=== PATIENT | female | born 1945 | race Caucasian/White ===

== ENCOUNTER 2016-06-20 14:26 | Emergency (ER) | payer OTHER ==
[~2016-06-20] VITALS: Ht 162.6 cm; Wt 68.0 kg
[~2016-06-20 14:26] MED LIST: ACET325T96 PO; CHOL100010 PO; LEVO50TA6 PO; MULT-506 PO; NRN800 PO; SIMV20TA2 PO; [UNRECOGNIZED DRUG - CODE] IV
[2016-06-20 14:34] VITALS: TEMP 36.8; Ht 162.6 cm; Wt 68.0 kg
[2016-06-20] MEDS ORDERED: ONDANSETRON 8 MG/54 ML D5W IV STA (14:54)
[2016-06-20] MEDS ORDERED: SODIUM CHLORIDE 0.9% 1000ML 1,000 ML IV STA (14:54)
[2016-06-20] MEDS ORDERED: OPTIRAY 320 IV PRN (15:00)
--- NOTE | 2016-06-20 15:02 | EMERGENCY ROOM VISIT NOTE ---
History Report prepared by Levi: Dayday Ty Under the Supervision of: Dr. Anirudh Sánchez D.O. First contact with patient: 14:38 Chief Complaint: VOMITING Stated Complaint: VOMITING,DIARRHEA Nursing Triage Summary: pt had 2 chemo tx family believes she is dehydrated. has not been eating and drinking for last 1.5 days. has had wet depends. pt has had diarrhea x [address] vomiting [address] to ed. History of Present Illness The patient is a 71 year old female who presents to the Emergency Room with complaints of persistent diarrhea beginning four days prior to arrival. She currently rates her discomfort as a 7/10 in severity. As per daughter, the patient received chemotherapy for her brain cancer six days ago. The daughter associates the patient experiencing nausea, vomiting, persistent headaches, weakness, decreased talking, and a yeast infection under her breast with today' s symptoms. She states the patient began vomiting en route to the ED today, and the patient complains of a headache most mornings. The daughter notes the patient had brain surgery in September 2014, in which, 2% of the cancer remained. She states the cancer became active again a month and a half ago around . The daughter notes the patient has been receiving a new treatment of chemotherapy. She states the patient has received two treatments since April. The daughter notes the patient has become incontinent with her bowels over the past month, and she has not been eating well for the past day and a half. She states the patient has a hard time sitting up in her bed over the past month. The daughter notes the patient was speaking yesterday morning, but has since been communicating with moans. She states the patient lives at home with her without nursing support. The daughter notes the patient was prescribed a depression medication recently, but she has not been able to administer much of the patient's medications over the past several days. She states the patient is supposed to take medication for her seizures, cholesterol, and thyroid, as well. The daughter denies the patient being given a prognosis at this time. Pt denies LOC, fevers, chills, diaphoresis, visual changes, neck pain, chest pain, breathing difficulties, abdominal pain, back pain, melena, hematochezia, urinary symptoms, numbness, lymphadenopathy, rash, or other complaints. It is noted the history is limited secondary to the patient's altered mental status. Source of History: family History Limited By: AMS Onset: four days PIG STICKER Position: other (global) Symptom Intensity: 12/26 Quality: other (diarrhea) Timing: other (persistent) Associated Symptoms: + diarrhea, + headache (persistent), + nausea, + vomiting, + weakness Note: Associated symptoms: decreased talking, and a yeast infection under her breast Review of Systems The HPI and ROS are limited secondary to the patient's altered mental status. Past Medical & Surgical Medical Problems: (1) Glioblastoma multiforme (2) Hypercholesteremia (3) Hypertension (4) Hypothyroid (5) Intractable nausea and vomiting (6) Weakness Family History Cancer Diabetes mellitus Heart disease Stroke Social History Smoking Status: Never Smoker Drug Use: none Marital Status: Housing Status: lives alone Occupation Status: retired Current/Historical Medications Scheduled Bevacizumab (Avastin), 1 DOSE IV Q2WK Carmustine (Bicnu), 1 DOSE SQ Q6WK Cholecalciferol (Vitamin D), 1,000 INTER.UNIT PO DAILY Gabapentin (Gabapentin), 800 MG PO TID Levothyroxine Sodium (Levothyroxine Sodium), 25 MCG PO DAILY Multivitamin (Multivitamin), 1 TAB PO DAILY Simvastatin (Zocor), 1 TAB PO DAILY Venlafaxine Hcl (Effexor), 75 MG PO DAILY Scheduled PRN Ondansetron Hcl (Zofran), 8 MG PO Q6 PRN for Nausea Allergies Coded Allergies: No Known Allergies (Unverified , 06/20/16) Physical Exam Vital Signs Date Time Temp Pulse Resp B/P Pulse Ox O2 Delivery O2 Flow Rate FiO2 06/20/16 21:51 103 18 147/84 98 06/20/16 21:12 115 16 06/20/16 20:59 124/94 06/20/16 20:42 103 96 06/20/16 20:29 138/55 06/20/16 20:16 147/87 06/20/16 19:29 115/99 06/20/16 19:12 110 23 85 06/20/16 19:07 144/71 91 Room Air 06/20/16 19:04 70 06/20/16 19:00 104 12 06/20/16 18:42 148/91 06/20/16 18:30 105 13 92 Room Air 06/20/16 15:00 87 06/20/16 14:34 36.8 89 14 139/72 96 Room Air Physical Exam GENERAL: Awake, chronically ill-appearing, debilitated. Very slow, sluggish to follow commands. HENT: Normocephalic, atraumatic. Dry mucous membranes. EYES: Normal conjunctiva. Sclera non-icteric. NECK: Supple. No nuchal rigidity. FROM. No JVD. RESPIRATORY: Clear to auscultation. CARDIAC: Regular rate, normal rhythm. No murmurs, gallops, or rubs. ABDOMEN: Soft, non-distended. Normal active bowel signs. Tenderness to the upper abdomen to palpation by moan from the patient. RECTAL: Deferred. MUSCULOSKELETAL: Chest examination reveals no tenderness. The back is symmetrical on inspection without obvious abnormality. There is left CVA tenderness to palpation. No joint edema. LOWER EXTREMITIES: Calves are equal size bilaterally and non-tender. No edema. No discoloration. NEURO: Normal sensorium. No sensory or motor deficits noted. SKIN: No rash or jaundice noted. Medical Decision & Procedures ER Provider Diagnostic Interpretation: X ray results as stated below per my interpretation and radiologist interpretation. Other radiology results as stated below per my review and radiologist interpretation CHEST ONE VIEW PORTABLE CLINICAL HISTORY: Vomiting at CT, ? Aspiration dyspnea COMPARISON STUDY: 04/17/2016 FINDINGS: The bones soft tissues and hemidiaphragms are normal. The cardiomediastinal silhouette is normal. The lungs are clear. The pulmonary vasculature is normal. IMPRESSION: Negative chest. Electronically signed by: Roderick Ventura M.D. 06/20/2016 6:[address] CT DOSE: 1375.95 mGy.cm HISTORY: Change in mental status Brain C/A, MS change TECHNIQUE: Multiaxial CT images of the head were performed without the use of intravenous contrast. Comparison: 04/17/2016 Findings: The paranasal sinuses and mastoid air cells are clear. Unchanging right-sided craniotomy. Postoperative surgical change and associated calcification are unaltered. Findings of mild chronic deep white matter edematous changes stable. There are no new or interval findings. There is no significant current midline shift. Impression: Chronic and postoperative change. No acute or interval process compared to the prior exam. Electronically signed by: Roderick Ventura M.D. 06/20/2016 8:02 PM ABDOMEN AND PELVIS CT WITH IV CONTRAST CT DOSE: 532.32 mGy.cm HISTORY: Nausea. Vomiting. N/V/D, brain CA s/p chemo TECHNIQUE: Multiaxial CT images of the abdomen and pelvis were performed following the use of intravenous contrast. COMPARISON STUDY: None. FINDINGS: Slight bibasilar interstitial prominence. Mild fatty infiltration of liver. Kidneys enhance uniformly. No evidence for hydronephrosis. Bowel pattern overall is nonobstructive. The appendix is normal. Mild left ischemic change of the abdominal and pelvic arterial vasculature. Bladder is midline. IMPRESSION: No acute process of the abdomen or pelvis. Slight bibasilar interstitial pulmonary parenchymal prominence. Electronically signed by: Roderick Ventura M.D. 06/20/2016 8:05 PM Laboratory Results 06/20/16 15:58 Red Blood Count 4.74, Mean Corpuscular Volume 94.3, Mean Corpuscular Hemoglobin 32.3, Mean Corpuscular Hemoglobin Concent 34.2, Mean Platelet Volume 10.7, Neutrophils (%) (Auto) 91.0, Lymphocytes (%) (Auto) 3.8, Monocytes (%) (Auto) 4.5, Eosinophils (%) (Auto) 0.1, Basophils (%) (Auto) 0.1, Neutrophils # (Auto) 12.87, Lymphocytes # (Auto) 0.54, Monocytes # (Auto) 0.63, Eosinophils # (Auto) 0.01, Basophils # (Auto) 0.02 06/20/16 15:58 Test 06/20/16 15:58 White Blood Count 14.14 K/uL (4.8-10.8) Red Blood Count 4.74 M/uL (4.2-5.4) Hemoglobin 15.3 g/dL (12.0-16.0) Hematocrit 44.7 % (37-47) Mean Corpuscular Volume 94.3 fL (80-100) Mean Corpuscular Hemoglobin 32.3 pg (25-34) Mean Corpuscular Hemoglobin Concent 34.2 g/dl (32-36) Platelet Count 185 K/uL (130-400) Mean Platelet Volume 10.7 fL (7.4-10.4) Neutrophils (%) (Auto) 91.0 % Lymphocytes (%) (Auto) 3.8 % Monocytes (%) (Auto) 4.5 % Eosinophils (%) (Auto) 0.1 % Basophils (%) (Auto) 0.1 % Neutrophils # (Auto) 12.87 K/uL (1.4-6.5) Lymphocytes # (Auto) 0.54 K/uL (1.2-3.4) Monocytes # (Auto) 0.63 K/uL (0.11-0.59) Eosinophils # (Auto) 0.01 K/uL (0-0.5) Basophils # (Auto) 0.02 K/uL (0-0.2) RDW Standard Deviation 46.0 fL (36.4-46.3) RDW Coefficient of Variation 13.6 % (11.5-14.5) Immature Granulocyte % (Auto) 0.5 % Immature Granulocyte # (Auto) 0.07 K/uL (0.00-0.02) Anion Gap 13.0 mmol/L (3-11) Est Creatinine Clear Calc Drug Dose 67.1 ml/min Estimated GFR () 94.3 Estimated GFR (Non- 81.3 BUN/Creatinine Ratio 20.0 (10-20) Calcium Level 9.1 mg/dl (8.5-10.1) Phosphorus Level 3.8 mg/dl (2.5-4.9) Magnesium Level 2.0 mg/dl (1.8-2.4) Total Bilirubin 0.9 mg/dl (0.2-1) Direct Bilirubin 0.3 mg/dl (0-0.2) Aspartate Amino Transf (AST/SGOT) 35 U/L (15-37) Alanine Aminotransferase (ALT/SGPT) 30 U/L (12-78) Alkaline Phosphatase 75 U/L (45-117) Total Protein 7.0 gm/dl (6.4-8.2) Albumin 3.7 gm/dl (3.4-5.0) Lipase 96 U/L (73-393) Laboratory results reviewed by me Medications Administered Medications (Trade) Dose Ordered Sig/Martin Route Start Time Stop Time Status Last Admin Dose Admin Sodium Chloride (Nss 1000ml) 1,000 ml @ 999 mls/hr Q1H1M STAT IV 06/20/16 14:54 06/20/16 15:54 DC 06/20/16 15:25 999 MLS/HR Ondansetron HCl (Zofran 8mg Iv) 16 mg NOW STAT IV 06/20/16 14:54 06/20/16 14:57 DC 06/20/16 16:04 16 MG Metoclopramide HCl (Reglan Inj) 10 mg NOW ONCE IV 06/20/16 19:15 06/20/16 19:16 DC 06/20/16 19:09 10 MG Dexamethasone Sodium Phosphate (Decadron Inj) 20 mg NOW ONCE IV 06/20/16 20:00 06/20/16 20:01 DC 06/20/16 20:00 20 MG Metoclopramide HCl (Reglan Inj) 10 mg STK-MED ONCE .ROUTE 06/20/16 21:33 06/20/16 21:34 DC 06/20/16 21:33 10 MG ED Course 1445: The patient was evaluated in room A2. A complete history and physical exam was performed. 1454: Ordered Zofran 8mg Iv 16 mg IV, Sodium Chloride 1,000 ml @ 999 mls/hr IV. 1525: Reevaluated the patient at this time, and the IV was just placed. 1607: Reevaluated the patient at this time, and she is unchanged. 1740: As per nurse, the patient vomited during CT and the scan was not completed. Another IV will be placed, because the first IV was not working well. The patient was placed on oxygen, because she had a saturation of 88%. She is now at 96%. 1744: Reevaluated the patient at this time, and she is unchanged. The patient has an oxygen saturation of 99% and her lung sounds are clear. 1745: Ordered Reglan Inj 10 mg IM. 1914: Ordered Reglan Inj 10 mg IV. 5: I spoke to RA Woodson (Hospitalist) about the patient's case, and he is willing to accept the patient. He would like me to consult Oncology about the patient's case. 1949: I spoke to RA June (Oncology) about the patient's case, and he would like the patient to be transferred to another facility. He recommends giving the patient 20 mg Decadron now. 1999: Ordered Decadron Inj 20 mg IV. 2010: I spoke to [facility] about the patient's case, and he accepted the patient for transfer. However, there are no beds available at this time. 2015: I spoke to Dr. Bocanegra [place], Emergency Medicine about the patient's case, and he will accept the patient for transfer to [place]. 2138: Reevaluated the patient at this time, and she is unchanged. The patient is getting ready for transport by ground to [place]. Medical Decision Differential diagnosis: Etiologies such as gastroenteritis, food borne illness, infections, appendicitis , diverticulitis, inflammatory bowel disease, obstruction, GI bleed, biliary pathology, as well as others were entertained. MDM: Patient is 71-year-old female with a history of a brain tumor such cell type his glioblastoma. spring she underwent a surgical resection by neurosurgery. Following that she had chemotherapy and radiation therapy with good relief of her symptoms. The patient undergoing chemotherapy for the last several months in April 2016 she had an MRI done in [place]. The MRI revealed recurrent tumor with edema. Her oncologist recommended that she undergo an different chemotherapy which was given to her on June 14. After the chemotherapy that she had on June 14 she became more lethargic daily losing her ability to perform her ADLs. Her daughter states that she was able to get up and walk around and care for self a week ago now she is unable to get out of bed and she has to wear depends. She quit talking yesterday. She follows very basic commands. She appears to be dehydrated here. The laboratory as well as CAT scan evaluation for her current status was ordered. She went to CAT scan and I rolled to her back she vomited. The techs cleared her airway were concerned about aspiration. I ordered a chest x-ray which was clear. She had a very mild short period of desaturations down into the upper 80s which resolved quite well with supplemental oxygen. She was eventually able to get a CAT scan of the scans performed which did not reveal any acute cerebral edema. No herniation or hemorrhage was also noted. I discussed this case with the internal medicine who recommended that we run this by oncology. When I discussed this with Dr. Flores from hematology oncology recommended that we transfer the patient to [place] for neurosurgical support. I discussed the case with Dr. Taylor from he recommended that we transfer the patient down for admission given that they had no floor bed at the time they recommended that we transfer the patient to [place] emergency department. I discussed the case with the emergency room doctor who also accepted the patient. She is in very poor condition. I called the daughter and discussed the case with her. She has accepted and agrees that we will be transferring the patient to . She remained stable while in our emergency department. The patient's presentation and history is c/w the impression provided. A partial list of DDx that has been considered is listed above. By the evaluation outlined above other emergent etiologies such as those listed in the differential, as well as others, were deemed relatively unlikely. The patient has been informed about today's findings. All questions were answered to satisfaction and understanding. They are pleased with the care provided. Patient education and return instructions were discussed as per my usual and the patient was discharged in stable condition as agreed upon by the patient. The patient was referred for close follow-up and informed that they will need to call to schedule appointment during the next business hours. The chart was completed utilizing a [employer] Speech voice recognition software. Utilizing these services results in errors at time as they are imperfect. Grammatical errors, random word insertions, pronoun errors, and incomplete sentences are an occasional consequence of this system due to software limitations, ambient noise, and hardware issues. Any formal questions or concerns about the content, text, or information contained within the body of this dictation should be directly addressed to the physician for clarification. Consults Time Called: 1826 Consulting Physician: RA Woodson (Hospitalist) Returned Call: 1944 I spoke to RA Woodson (Hospitalist) about the patient's case, and he is willing to accept the patient. He would like me to consult Oncology about the patient's case. Additional Consults: Time Called: 1947 Consulted Physician: RA June (Oncology) Returned Call: 1949 Additional Comments: I spoke to RA June (Oncology) about the patient's case, and he would like the patient to be transferred to another facility. He recommends giving the patient 20 mg Decadron now. Time Called: 2014 Consulted Physician: [facility], [facility] Returned Call: 2015 Additional Comments: 2010: I spoke to [facility] about the patient's case, and he accepted the patient for transfer. However, there are no beds available at this time. 2016: I spoke to [facility], Emergency Medicine about the patient's case, and he will accept the patient for transfer to [place]. Impression Primary Impression: Altered mental state Additional Impressions: Glioblastoma determined by biopsy of brain, stroke, possible Ruled Out: Cerebral hemorrhage, Cerebral edema Scribe Attestation The scribe's documentation has been prepared under my direction and personally reviewed by me in its entirety. I confirm that the note above accurately reflects all work, treatment, procedures, and medical decision making performed by me. Departure Information Dispostion Transfer Acute Care Facility ([facility]) Referrals Eric Mcfadden M.D. (PCP)
[2016-06-20] MEDS ORDERED: ONDA8TAB6 PO (15:07)
[2016-06-20] MEDS ORDERED: VENL75TA4 PO (15:07)
[2016-06-20] MEDS ORDERED: [UNRECOGNIZED DRUG - CODE] SQ (15:08)
[2016-06-20 16:10] LABS: BASO % 0.1 %; BASO ABS # 0.02 K/uL (0-0.2); COMPLETE YES; EOS % 0.1 %; HEMATOCRIT 44.7 % (37-47); IG% 0.5 %; LYMPH % 3.8 %; LYMPH ABS # 0.54 K/uL (1.2-3.4); MEAN CELL VOLUME 94.3 fL (80-100); MEAN CORPUSCULAR HEMOGLOBIN 32.3 pg (25-34); MEAN CORPUSCULAR HGB CONC 34.2 g/dl (32-36); MEAN PLATELET VOLUME 10.7 fL (7.4-10.4); MONO % 4.5 %; PLATELET COUNT 185 K/uL (130-400); RED BLOOD COUNT 4.74 M/uL (4.2-5.4); WHITE BLOOD COUNT 14.14 K/uL (4.8-10.8)
[2016-06-20 16:43] LABS: CALCIUM 9.1 mg/dl (8.5-10.1); CREATININE 0.75 mg/dl (0.60-1.20); POTASSIUM 4.1 mmol/L (3.5-5.1)
[2016-06-20 16:45] LABS: PHOSPHORUS 3.8 mg/dl (2.5-4.9)
[2016-06-20] MEDS ORDERED: METOCLOPRAMIDE HCL INJ 5 MG/ML 2 ML VIAL IM PRN (17:45)
--- NOTE | 2016-06-20 18:02 | DIAGNOSTIC IMAGING REPORT ---
CHEST ONE VIEW PORTABLE CLINICAL HISTORY: Vomiting at CT, ? Aspiration dyspnea COMPARISON STUDY: 04/17/2016 FINDINGS: The bones soft tissues and hemidiaphragms are normal. The cardiomediastinal silhouette is normal. The lungs are clear. The pulmonary vasculature is normal. IMPRESSION: Negative chest. Electronically signed by: Roderick Ventura M.D. 06/20/2016 6:00 PM
[2016-06-20] MEDS ORDERED: NURSING VERBAL MED ORDER ONE (19:00)
[2016-06-20] MEDS ORDERED: METOCLOPRAMIDE HCL INJ 5 MG/ML 2 ML VIAL IV ONE (19:15)
[2016-06-20] MEDS ORDERED: DEXAMETHASONE SOD INJ 10 MG/ML VIAL IV ONE (20:00)
--- NOTE | 2016-06-20 20:03 | DIAGNOSTIC IMAGING REPORT ---
HEAD CT NONCONTRAST CT DOSE: 1375.95 mGy.cm HISTORY: Change in mental status Brain C/A, MS change TECHNIQUE: Multiaxial CT images of the head were performed without the use of intravenous contrast. Comparison: 04/17/2016 Findings: The paranasal sinuses and mastoid air cells are clear. Unchanging right-sided craniotomy. Postoperative surgical change and associated calcification are unaltered. Findings of mild chronic deep white matter edematous changes stable. There are no new or interval findings. There is no significant current midline shift. Impression: Chronic and postoperative change. No acute or interval process compared to the prior exam. Electronically signed by: Roderick Ventura M.D. 06/20/2016 8:02 PM
--- NOTE | 2016-06-20 20:07 | DIAGNOSTIC IMAGING REPORT ---
ABDOMEN AND PELVIS CT WITH IV CONTRAST CT DOSE: 532.32 mGy.cm HISTORY: Nausea. Vomiting. N/V/D, brain CA s/p chemo TECHNIQUE: Multiaxial CT images of the abdomen and pelvis were performed following the use of intravenous contrast. COMPARISON STUDY: None. FINDINGS: Slight bibasilar interstitial prominence. Mild fatty infiltration of liver. Kidneys enhance uniformly. No evidence for hydronephrosis. Bowel pattern overall is nonobstructive. The appendix is normal. Mild left ischemic change of the abdominal and pelvic arterial vasculature. Bladder is midline. IMPRESSION: No acute process of the abdomen or pelvis. Slight bibasilar interstitial pulmonary parenchymal prominence. Electronically signed by: Roderick Ventura M.D. 06/20/2016 8:05 PM
[2016-06-20] MEDS ORDERED: METOCLOPRAMIDE HCL INJ 5 MG/ML 2 ML VIAL ONE (21:33)
[2016-06-20 21:51] VITALS: BP 147/84; PULSE 103; O2SAT 98
[2016-07-28] MEDS ORDERED: KPPS PO (10:01)
[2016-07-28] MEDS ORDERED: Tube Feeding Water Flush GT (10:01)
[2016-07-28] MEDS ORDERED: RXNS20 PO (10:01)
[2016-07-28] MEDS ORDERED: LORA-741 PO (10:01)
== END 2016-06-20 21:52 | disposition short-term general hospital (02) ==
LOC: C.EDB 14:29 → C.EDA 21:52
DX: R41.82 Altered mental status, unspecified (principal); C71.9 Malignant neoplasm of brain, unspecified; R19.7 Diarrhea, unspecified; R11.2 Nausea with vomiting, unspecified; R51 Headache; R53.1 Weakness; E78.00 Pure hypercholesterolemia, unspecified; E03.9 Hypothyroidism, unspecified; I10 Essential (primary) hypertension; Z79.899 Other long term (current) drug therapy; Z83.3 Family history of diabetes mellitus; Z82.3 Family history of stroke

== ENCOUNTER 2016-07-07 16:08 | Emergency (ER) | payer OTHER ==
[~2016-07-07] VITALS: Ht 172.7 cm; Wt 62.1 kg
[~2016-07-07 16:08] MED LIST changes: -ACET325T96 PO; +ONDA8TAB6 PO; +VENL75TA4 PO; +[UNRECOGNIZED DRUG - CODE] SQ
[2016-07-07 16:18] VITALS: TEMP 36.6; Ht 172.7 cm; Wt 62.1 kg
--- NOTE | 2016-07-07 16:26 | EMERGENCY ROOM VISIT NOTE ---
History Report prepared by Levi: Gissell Sharma Under the Supervision of: Dr. Jill James M.D. First contact with patient: 16:11 Stated Complaint: PULLED PEG-TUME History of Present Illness The patient is a 71 year old female who presents to the Emergency Room with complaints of a sudden dislodgement of her NG tube today. Per the patient's , the patient had a brain tumor removed and had chemotherapy treatments. He states that their daughter has power of health care attorney of the patient and has all the information regarding the patient. The patient's states that the patient has been at [facility] for the past 3-4 days. He states that she has an NG tube and pulled it out. The patient's notes that the patient is fed through the tube. He states that the patient was supposed to be switched to a permanent peg tube. Per the patient's daughter, her chemotherapy treatments have been stopped. Source of History: patient Onset: today Position: other (global) Quality: other (dislodgement of NG tube) Timing: other (sudden) Review of Systems See HPI for pertinent positives & negatives. A total of 10 systems reviewed and were otherwise negative. Past Medical & Surgical Medical Problems: (1) Glioblastoma multiforme (2) Hypercholesteremia (3) Hypertension (4) Hypothyroid (5) Intractable nausea and vomiting (6) Weakness Family History Cancer Diabetes mellitus Heart disease Stroke Social History Smoking Status: Never Smoker Drug Use: none Marital Status: Housing Status: lives alone Occupation Status: retired Current/Historical Medications Scheduled Bevacizumab (Avastin), 1 DOSE IV Q2WK Carmustine (Bicnu), 1 DOSE SQ Q6WK Cholecalciferol (Vitamin D3), 1 TAB NG DAILY Gabapentin (Gabapentin), 800 MG PO TID Levothyroxine Sodium (Levothyroxine Sodium), 25 MCG PO DAILY Multiple Vitamins W/ Minerals (Multi Vitamin/Minerals Fu), 5 ML NG DAILY Pantoprazole (Protonix), 40 MG NG DAILY Sennosides (Senna), 10 ML NG BID Simvastatin (Zocor), 1 TAB PO DAILY Venlafaxine Hcl (Effexor), 37.5 MG PO BID Scheduled PRN Ondansetron Hcl (Zofran), 8 MG PO Q6 PRN for Nausea Allergies Coded Allergies: No Known Allergies (Unverified , 07/07/16) Physical Exam Vital Signs Date Time Temp Pulse Resp B/P Pulse Ox O2 Delivery O2 Flow Rate FiO2 07/07/16 19:45 84 18 153/98 100 Room Air 07/07/16 17:44 93 18 143/93 97 Room Air 07/07/16 16:18 36.6 79 18 140/81 100 Room Air Physical Exam Vital signs reviewed. General: Chronically ill appearing female, minimally responsive. Mittens to both hands. HEENT: No scleral icterus, PERRLA, neck supple. Atraumatic. Cardiovascular: Regular rate and rhythm, no extra sounds. Pulmonary: Clear to auscultation bilaterally, normal work of breathing. Abdomen: Soft, nontender, nondistended, positive bowel sounds. Musculoskeletal: Atraumatic, no peripheral edema. Neurologic: Patient awake alert and unable to answer questions appropriately. Stares into the distance but is able to turn her head. She does withdraw to painful stimuli. Skin: Warm, dry, no rash Medical Decision & Procedures ER Provider Diagnostic Interpretation: X-ray results as stated below per interpretation by me and the radiologist: CHEST ONE VIEW PORTABLE CLINICAL HISTORY: Feeding tube placement COMPARISON STUDY: Chest radiograph June 20, 2016 per FINDINGS: The tip of the feeding tube is within the distal body of the stomach. A dual lead left subclavian pacemaker remains in place. There is no pneumothorax. Mild elevation of the right hemidiaphragm is noted. No evidence of pulmonary edema. IMPRESSION: Tip of feeding tube projects over the distal body of the stomach. Electronically signed by: Marcos Brock M.D. 07/07/2016 6:26 PM Dictated Date/Time: 07/07/2016 6:24 PM ED Course 1616: Past medical records reviewed. The patient was evaluated in room C2B. A complete history and physical examination was performed. 1655: I reevaluated the patient and she is resting comfortably. 6: I reevaluated the patient and she is resting comfortably. I discussed the exam findings with her and I discussed the treatment plan. He verbalized complete understanding and agreement. The patient is ready to go back to [facility] once transportation is arranged. Medical Decision This patient was evaluated and appeared to be in no significant distress. Patient appears to be resting comfortably. The patient apparently has a GBM and according to her daughter chemotherapy treatments recently been stopped. She pulled out her feeding tube today which was replaced by nursing staff. Patient was returned to the [facility] after x-ray confirms good placement. Patient's seems happy with the plan and agrees. Impression Primary Impression: Impaired nasal gastric feeding tube Scribe Attestation The scribe's documentation has been prepared under my direction and personally reviewed by me in its entirety. I confirm that the note above accurately reflects all work, treatment, procedures, and medical decision making performed by me. Departure Information Dispostion Home / Self-Care Referrals Eric Mcfadden M.D. (PCP) Forms HOME CARE DOCUMENTATION FORM, IMPORTANT VISIT INFORMATION, WORK / SCHOOL INSTRUCTIONS Patient Instructions My [facility] Additional Instructions Diagnosis: Feeding tube replacement The largest feeding tube [facility] supplies is an 8 Yemeni. This was placed but is smaller in diameter than the previous feeding tube. Please use caution and flush frequently to avoid clogging. Follow-up with your physician for reevaluation this week. Return to the ER for worsening of symptoms or any medical concerns. Problem Qualifiers Primary Impression: Impaired nasal gastric feeding tube Encounter type: initial encounter Qualified Codes: T85.598A - Other mechanical complication of other gastrointestinal prosthetic devices, implants and grafts, initial encounter
[2016-07-07] MEDS ORDERED: EFF/375 PO (18:27)
--- NOTE | 2016-07-07 18:27 | DIAGNOSTIC IMAGING REPORT ---
CHEST ONE VIEW PORTABLE CLINICAL HISTORY: Feeding tube placement COMPARISON STUDY: Chest radiograph June 20, 2016 per FINDINGS: The tip of the feeding tube is within the distal body of the stomach. A dual lead left subclavian pacemaker remains in place. There is no pneumothorax. Mild elevation of the right hemidiaphragm is noted. No evidence of pulmonary edema. IMPRESSION: Tip of feeding tube projects over the distal body of the stomach. Electronically signed by: Marcos Brock M.D. 07/07/2016 6:26 PM Dictated Date/Time: 07/07/2016 6:24 PM
[2016-07-07] MEDS ORDERED: [UNRECOGNIZED DRUG - CODE] NG (18:30)
[2016-07-07] MEDS ORDERED: PANT40TA NG (18:32)
[2016-07-07] MEDS ORDERED: MULT-653 NG (18:32)
[2016-07-07] MEDS ORDERED: CHOL1000 NG (18:34)
[2016-07-07 19:45] VITALS: BP 153/98; PULSE 84; O2SAT 100
[2016-07-28] MEDS ORDERED: Tube Feeding Water Flush GT (10:01)
[2016-07-28] MEDS ORDERED: RXNS20 PO (10:01)
[2016-07-28] MEDS ORDERED: KPPS PO (10:01)
[2016-07-28] MEDS ORDERED: LORA-741 PO (10:01)
== END 2016-07-07 20:00 | disposition home or self-care (01) ==
LOC: C.EDC 16:08 → EDBD 16:08 → C.EDC 20:00
DX: T85.598A Other mechanical complication of other gastrointestinal prosthetic devices, implants and grafts, initial encounter (principal); I10 Essential (primary) hypertension; E78.00 Pure hypercholesterolemia, unspecified; E03.9 Hypothyroidism, unspecified; Z79.899 Other long term (current) drug therapy; Z85.841 Personal history of malignant neoplasm of brain; Z92.21 Personal history of antineoplastic chemotherapy; Z83.3 Family history of diabetes mellitus; Z82.3 Family history of stroke; Z82.49 Family history of ischemic heart disease and other diseases of the circulatory system; Y83.3 Surgical operation with formation of external stoma as the cause of abnormal reaction of the patient, or of later complication, without mention of misadventure at the time of the procedure

== ENCOUNTER 2016-07-25 10:45 | Inpatient (IN) | payer OTHER ==
[~2016-07-25] VITALS: Ht 165.1 cm; Wt 64.7 kg
[~2016-07-25 10:45] MED LIST changes: +CHOL1000 NG; -CHOL100010 PO; +EFF/375 PO; -MULT-506 PO; +MULT-653 NG; +PANT40TA NG; -VENL75TA4 PO; +[UNRECOGNIZED DRUG - CODE] NG
[2016-07-25] MEDS ORDERED: ONDANSETRON INJ 2 MG/ML 2 ML VIAL IV STA (11:31)
[2016-07-25] MEDS ORDERED: SODIUM CHLORIDE 0.9% 1000ML 1,000 ML IV STA (11:31)
[2016-07-25] MEDS ORDERED: GABAPENTIN NG (11:42)
[2016-07-25] MEDS ORDERED: NYSTOIN5 (11:42)
[2016-07-25] MEDS ORDERED: LEVE750T NG (11:42)
[2016-07-25] MEDS ORDERED: MULT-513 NG (11:42)
[2016-07-25] MEDS ORDERED: PRLSR20 PO (11:42)
[2016-07-25] MEDS ORDERED: BISA10SU3 PR (11:42)
[2016-07-25] MEDS ORDERED: ENOX1INJ8 SQ (11:42)
[2016-07-25] MEDS ORDERED: ACET650S10 (11:42)
[2016-07-25] MEDS ORDERED: MOML PO (11:42)
[2016-07-25] MEDS ORDERED: DXM/4 NG (11:42)
[2016-07-25] MEDS ORDERED: SODI1ENE (11:42)
[2016-07-25] MEDS ORDERED: LEVO25TA5 PO (11:42)
[2016-07-25] MEDS ORDERED: INSU100I SQ (11:42)
[2016-07-25] MEDS ORDERED: DOCU100C31 NG (11:42)
--- NOTE | 2016-07-25 11:45 | EMERGENCY ROOM VISIT NOTE ---
"History Report prepared by Levi: Gissell Sharma Under the Supervision of: Dr. Salvador Matthews D.O. First contact with patient: 11:12 Chief Complaint: ABDOMINAL PAIN Stated Complaint: VOMITING/ ABDOMINAL PAIN Nursing Triage Summary: Pt is non verbal. Pt has history of Gleoblastoma Pt has feeding tube placed 07/01/16 Vomited yellow bile this am. History of Present Illness The patient is a 71 year old female who presents to the Emergency Room with complaints of persistent vomiting that began today. Per nursing staff, the patient arrived via ALS from [facility]. They note that the patient has been vomiting yellow bile today. Nursing staff notes that the patient has a history of Glioblastoma. They note that the patient's feeding tube was placed on . Nursing staff denies any report of a fever. The history is limited secondary to the patient being nonverbal. Source of History: nursing staff History Limited By: other (nonverbal) Onset: today Position: other (global) Quality: other (vomiting) Timing: other (persistent) Associated Symptoms: No fevers Review of Systems See HPI for pertinent positives & negatives. A total of 10 systems reviewed and were otherwise negative. Past Medical & Surgical Medical Problems: (1) Abdominal pain with vomiting (2) Glioblastoma multiforme (3) Hypercholesteremia (4) Hypertension (5) Hypothyroid (6) Intractable nausea and vomiting (7) Weakness Family History Cancer Diabetes mellitus Heart disease Stroke Social History Smoking Status: Unknown if Ever Smoked Drug Use: none Marital Status: Housing Status: lives alone Occupation Status: retired Current/Historical Medications Scheduled Acetaminophen (Tylenol), 650 MG Q6 Cholecalciferol (Vitamin D3), 1 TAB NG DAILY Dexamethasone (Decadron), 1 TAB NG BID Docusate Sodium (Docusate Sodium), 10 ML NG BID Enoxaparin Sodium (Lovenox), 30 MG SQ Q12 Insulin Lispro (Human) (Humalog), SQ ACHS Levetiracetam (Keppra), 15 ML NG Q12 Levothyroxine Sodium (Levothyroxine Sodium), 1 TAB PO DAILY Multivitamins/Minerals (Mvi With Minerals), 5 ML NG DAILY Omeprazole (Prilosec), 20 MG PO DAILY Sennosides (Senna), 10 ML NG BID Simvastatin (Zocor), 1 TAB PO DAILY Venlafaxine Hcl (Effexor), 37.5 MG PO BID [gabapentin solution], 16 ML NG TID Miscellaneous Medications Bisacodyl (Dulcolax), 1 SUPP IA Magnesium Hydroxide (Milk Of Magnesia), 30 ML PO Nystatin/Triamcinolone (Mycogen ||) Sodium Phosphates (Fleet Enema Six Pack) Allergies Coded Allergies: No Known Allergies (Unverified , 07/07/16) Physical Exam Vital Signs Date Time Temp Pulse Resp B/P Pulse Ox O2 Delivery O2 Flow Rate FiO2 07/25/16 13:11 95 07/25/16 10:53 36.5 94 18 129/82 100 Room Air 07/25/16 10:49 94 Physical Exam GENERAL: Patient is awake and looking around room. EYES: Pupils are mid-range and reactive to light bilaterally. She tracks from the right side and neglects the left side. EARS, NOSE, MOUTH AND THROAT: The nose is without any evidence of any deformity. Mucous membranes are dry tongue is midline NECK: The neck is nontender and supple. RESPIRATORY: Diminished breath sounds noted throughout. Poor inspiratory effort noted. CARDIOVASCULAR: Tachycardic rate, but regular rhythm. No definite murmur was appreciated to auscultation. GASTROINTESTINAL: The abdomen mildly distended, but soft. No specific guarding or rigidity noted. MUSCULOSKELETAL/EXTREMITIES: Pedal edema bilaterally. There is no evidence of gross deformity full range of motion is noted in the hips and shoulders SKIN: There is no obvious evidence of any rash. There are no petechiae, pallor or cyanosis noted. NEUROLOGIC: Unable to assess orientation. Patient is unable to speak. Appears to have wakness in left side of body. Medical Decision & Procedures ER Provider Diagnostic Interpretation: X ray results and stated below per my interpretation and radiology interpretation. Other radiology results per my review and radiologist interpretation: HEAD CT NONCONTRAST CT DOSE: 1572.10 mGy.cm HISTORY: Nausea. Vomiting. vomiting and altered MS TECHNIQUE: Multiaxial CT images of the head were performed without the use of intravenous contrast. Comparison: 06/20/2016. FINDINGS: postoperative changes of the right cerebral hemisphere again noted. High density calcium deposits are noted which appear similar. There is mild calcification of the tentorium on the right. There may be a subtle increase in edematous change of the posterior right temporal lobe. Partial effacement of the right occipital lobe, subtle deformity right lateral quadrigeminal plate cistern are stable. Chronic periventricular deep white matter chronic small vessel change is noted. Craniotomy flap is in good position. Impression: 1. Pre-existing postoperative as well as encephalomalacia and calcification changes of the right superior parietal occipital region. 2. Slight increase in lateral temporal lobe edematous change transaxial image 12. 3. No evidence for midline shift or acute intracranial hemorrhage. Electronically signed by: Roderick Ventura M.D. 07/25/2016 11:59 AM Dictated Date/Time: 07/25/2016 11:57 AM CHEST ONE VIEW PORTABLE CLINICAL HISTORY: ABDOMINAL PAIN/GI pain. Nausea. COMPARISON STUDY: 07/07/2016 FINDINGS: Feeding tube mid stomach. Lungs are grossly clear. Slight chronic accentuation left basilar markings. IMPRESSION: No acute process. Chronic and post operative change. Electronically signed by: Roderick Ventura M.D. 07/25/2016 12:06 PM Dictated Date/Time: 07/25/2016 12:00 PM The status of this report is Signed. Draft = Not yet reviewed or approved by Radiologist. Signed = Reviewed and approved by Radiologist. ABDOMEN AND PELVIS CT WITHOUT CONTRAST CT DOSE: HISTORY: Pain. Nausea. vomiting and altered MS TECHNIQUE: Multiaxial CT images of the abdomen and pelvis were performed without contrast. COMPARISON STUDY: 06/20/2016 FINDINGS: Minimal bibasilar dependent atelectatic change. Size and configuration of liver spleen and pancreas are unremarkable. There is a nasogastric tube within the mid stomach. Kidneys negative for calcification or hydronephrosis. Bowel pattern is considered nonobstructive throughout. Appendix is normal. There are several injection site granulomas of the anterior abdominal wall. pathologist bladder is midline. There is no significant free fluid within the pelvic cul-de-sac. IMPRESSION: No acute process of the abdomen or pelvis. No change from the prior exam. Electronically signed by: Roderick Ventura M.D. 07/25/2016 12:12 PM Dictated Date/Time: 07/25/2016 12:10 PM Laboratory Results 07/25/16 12:20 Red Blood Count 3.96, Mean Corpuscular Volume 96.0, Mean Corpuscular Hemoglobin 32.8, Mean Corpuscular Hemoglobin Concent 34.2, Mean Platelet Volume 10.2, Neutrophils (%) (Auto) 62.0, Lymphocytes (%) (Auto) 31.4, Monocytes (%) (Auto) 4.6, Eosinophils (%) (Auto) 0.8, Basophils (%) (Auto) 0.4, Neutrophils # (Auto) 1.48, Lymphocytes # (Auto) 0.75, Monocytes # (Auto) 0.11, Eosinophils # (Auto) 0.02, Basophils # (Auto) 0.01 07/25/16 12:20 Test 07/25/16 12:20 07/25/16 12:40 White Blood Count 2.39 K/uL (4.8-10.8) Red Blood Count 3.96 M/uL (4.2-5.4) Hemoglobin 13.0 g/dL (12.0-16.0) Hematocrit 38.0 % (37-47) Mean Corpuscular Volume 96.0 fL (80-100) Mean Corpuscular Hemoglobin 32.8 pg (25-34) Mean Corpuscular Hemoglobin Concent 34.2 g/dl (32-36) Platelet Count 114 K/uL (130-400) Mean Platelet Volume 10.2 fL (7.4-10.4) Neutrophils (%) (Auto) 62.0 % Lymphocytes (%) (Auto) 31.4 % Monocytes (%) (Auto) 4.6 % Eosinophils (%) (Auto) 0.8 % Basophils (%) (Auto) 0.4 % Neutrophils # (Auto) 1.48 K/uL (1.4-6.5) Lymphocytes # (Auto) 0.75 K/uL (1.2-3.4) Monocytes # (Auto) 0.11 K/uL (0.11-0.59) Eosinophils # (Auto) 0.02 K/uL (0-0.5) Basophils # (Auto) 0.01 K/uL (0-0.2) RDW Standard Deviation 56.1 fL (36.4-46.3) RDW Coefficient of Variation 16.4 % (11.5-14.5) Immature Granulocyte % (Auto) 0.8 % Immature Granulocyte # (Auto) 0.02 K/uL (0.00-0.02) Nucleated RBC Absolute Count (auto) 0.04 K/uL (0-0) Nucleated Red Blood Cells % 1.8 % Anisocytosis PRESENT Prothrombin Time 10.6 SECONDS (9.0-12.0) Prothromb Time International Ratio 1.0 (0.9-1.1) Activated Partial Thromboplast Time 27.7 SECONDS (21.0-31.0) Partial Thromboplastin Ratio 1.1 Anion Gap 10.0 mmol/L (3-11) Estimated GFR () 112.3 Estimated GFR (Non- 96.9 BUN/Creatinine Ratio 50.0 (10-20) Calcium Level 8.7 mg/dl (8.5-10.1) Total Bilirubin 0.5 mg/dl (0.2-1) Direct Bilirubin 0.1 mg/dl (0-0.2) Aspartate Amino Transf (AST/SGOT) 27 U/L (15-37) Alanine Aminotransferase (ALT/SGPT) 57 U/L (12-78) Alkaline Phosphatase 75 U/L (45-117) Total Creatine Kinase 102 U/L (26-192) Creatine Kinase MB 0.8 ng/ml (0.5-3.6) Creatine Kinase MB Ratio 0.8 (0-3.0) Troponin I < 0.015 ng/ml (0-0.045) Total Protein 6.2 gm/dl (6.4-8.2) Albumin 2.9 gm/dl (3.4-5.0) Lipase 127 U/L (73-393) Urine Color YELLOW Urine Appearance CLEAR (CLEAR) Urine pH 7.0 (4.5-7.5) Urine Specific [place] 1.021 (1.000-1.030) Urine Protein NEG (NEG) Urine Glucose (UA) NEG (NEG) Urine Ketones NEG (NEG) Urine Occult Blood NEG (NEG) Urine Nitrite NEG (NEG) Urine Bilirubin NEG (NEG) Urine Urobilinogen NEG (NEG) Urine Leukocyte Esterase NEG (NEG) Urine WBC (Auto) 1-5 /hpf (0-5) Urine RBC (Auto) 0-4 /hpf (0-4) Urine Hyaline Casts (Auto) 1-5 /lpf (0-5) Urine Epithelial Cells (Auto) 5-10 /lpf (0-5) Urine Bacteria (Auto) NEG (NEG) Laboratory results per my review. Medications Administered Medications (Trade) Dose Ordered Sig/Martin Route Start Time Stop Time Status Last Admin Dose Admin Sodium Chloride (Nss 1000ml) 1,000 ml @ 999 mls/hr Q1H1M STAT IV 07/25/16 11:31 07/25/16 12:31 DC 07/25/16 11:36 999 MLS/HR Ondansetron HCl (Zofran Inj) 4 mg NOW STAT IV 07/25/16 11:31 07/25/16 11:33 DC 07/25/16 11:36 4 MG ECG Indication: vomiting Rate (beats per minute): 91 Rhythm: normal sinus Findings: no ectopy, other (no acute ST segment abnormalities) Comparison ECG Date: 04/17/16 Change: no significant change ED Course 1126: The patient was evaluated in room C7. A complete history and physical examination were performed. 1131: Ordered Zofran Inj 4 mg IV, Sodium Chloride 1000 ml @ 999 mls/hr IV. 1313: I discussed the patients case with RA Garland. He asked that I consult Dr. Mccormick regarding the patient. 1325: I discussed the patients case with Dr. Anny KNAPP. He states that the patient should be evaluated further in the hospital. 1333: I discussed the patients case with RA Styles. He is going to evaluate the patient for further treatment. Medical Decision Differential diagnosis: Etiologies such as gastroenteritis, food borne illness, infections, appendicitis , diverticulitis, inflammatory bowel disease, obstruction, GI bleed, biliary pathology, as well as others were entertained. Nursing notes reviewed. The patient is a 71-year-old female who presented to the emergency department for evaluation of vomiting. The patient is not able to tell what happened because of previous craniotomy and history of intracranial mass. The patient has not been eating and a feeding tube was placed through her nose into her stomach. They're not sure if the patient needs a permanent feeding tube at this time. The patient was having episodes of emesis. She was sent to the emergency department for an evaluation. The patient was treated with IV fluids and IV antiemetics. I discussed this case with the on-call [facility] hospitalist. They've agreed to evaluate the patient in the emergency department for further management and disposition. Consults Time Called: 1313 Consulting Physician: RA Garland Returned Call: [phone] I discussed the patients case with RA Garland. He asked that I consult Dr. Mccormick regarding the patient. Additional Consults: Time Called: 1325 Consulted Physician: RA Molina Returned Call: [phone] Additional Comments: I discussed the patients case with Dr. Anny KNAPP. He states that the patient should be evaluated further in the hospital. Time Called: 1327 Consulted Physician: RA Styles Returned Call: [phone] Additional Comments: I discussed the patients case with RA Styles. He is going to evaluate the patient for further treatment. Impression Primary Impression: Intractable vomiting Additional Impressions: Dehydration History of craniotomy Scribe Attestation The scribe's documentation has been prepared under my direction and personally reviewed by me in its entirety. I confirm that the note above accurately reflects all work, treatment, procedures, and medical decision making performed by me. Departure Information Dispostion Being Evaluated By Hospitalist Referrals Laine Sheppard (PCP) Problem Qualifiers"
--- NOTE | 2016-07-25 12:01 | DIAGNOSTIC IMAGING REPORT ---
HEAD CT NONCONTRAST CT DOSE: 1572.10 mGy.cm HISTORY: Nausea. Vomiting. vomiting and altered MS TECHNIQUE: Multiaxial CT images of the head were performed without the use of intravenous contrast. Comparison: 06/20/2016. FINDINGS: postoperative changes of the right cerebral hemisphere again noted. High density calcium deposits are noted which appear similar. There is mild calcification of the tentorium on the right. There may be a subtle increase in edematous change of the posterior right temporal lobe. Partial effacement of the right occipital lobe, subtle deformity right lateral quadrigeminal plate cistern are stable. Chronic periventricular deep white matter chronic small vessel change is noted. Craniotomy flap is in good position. Impression: 1. Pre-existing postoperative as well as encephalomalacia and calcification changes of the right superior parietal occipital region. 2. Slight increase in lateral temporal lobe edematous change transaxial image 12. 3. No evidence for midline shift or acute intracranial hemorrhage. Electronically signed by: Roderick Ventura M.D. 07/25/2016 11:59 AM Dictated Date/Time: 07/25/2016 11:57 AM
--- NOTE | 2016-07-25 12:07 | DIAGNOSTIC IMAGING REPORT ---
CHEST ONE VIEW PORTABLE CLINICAL HISTORY: ABDOMINAL PAIN/GI pain. Nausea. COMPARISON STUDY: 07/07/2016 FINDINGS: Feeding tube mid stomach. Lungs are grossly clear. Slight chronic accentuation left basilar markings. IMPRESSION: No acute process. Chronic and post operative change. Electronically signed by: Roderick Ventura M.D. 07/25/2016 12:06 PM Dictated Date/Time: 07/25/2016 12:00 PM
--- NOTE | 2016-07-25 12:13 | DIAGNOSTIC IMAGING REPORT ---
ABDOMEN AND PELVIS CT WITHOUT CONTRAST CT DOSE: HISTORY: Pain. Nausea. vomiting and altered MS TECHNIQUE: Multiaxial CT images of the abdomen and pelvis were performed without contrast. COMPARISON STUDY: 06/20/2016 FINDINGS: Minimal bibasilar dependent atelectatic change. Size and configuration of liver spleen and pancreas are unremarkable. There is a nasogastric tube within the mid stomach. Kidneys negative for calcification or hydronephrosis. Bowel pattern is considered nonobstructive throughout. Appendix is normal. There are several injection site granulomas of the anterior abdominal wall. pathologist bladder is midline. There is no significant free fluid within the pelvic cul-de-sac. IMPRESSION: No acute process of the abdomen or pelvis. No change from the prior exam. Electronically signed by: Roderick Ventura M.D. 07/25/2016 12:12 PM Dictated Date/Time: 07/25/2016 12:10 PM
[2016-07-25 12:28] LABS: BASO % 0.4 %; BASO ABS # 0.01 K/uL (0-0.2); EOS % 0.8 %; IG% 0.8 %; LYMPH % 31.4 %; LYMPH ABS # 0.75 K/uL (1.2-3.4); MEAN CORPUSCULAR HEMOGLOBIN 32.8 pg (25-34); MEAN CORPUSCULAR HGB CONC 34.2 g/dl (32-36); MEAN PLATELET VOLUME 10.2 fL (7.4-10.4); MONO % 4.6 %; PLATELET COUNT 114 K/uL (130-400); RED BLOOD COUNT 3.96 M/uL (4.2-5.4); WHITE BLOOD COUNT 2.39 K/uL (4.8-10.8)
[2016-07-25 12:39] LABS: PARTIAL THROMBOPLASTIN RATIO 1.1; PROTHROMBIN TIME (PATIENT) 10.6 SECONDS (9.0-12.0)
[2016-07-25 12:49] LABS: ANISOCYTOSIS PRESENT; COMPLETE YES
[2016-07-25 12:53] LABS: ALKALINE PHOSPHATASE 75 U/L (45-117); ALT/SGPT 57 U/L (12-78); AST/SGOT 27 U/L (15-37); BLOOD UREA NITROGEN 27 mg/dl (7-18); CALCIUM 8.7 mg/dl (8.5-10.1); CARBON DIOXIDE 29 mmol/L (21-32); CHLORIDE 100 mmol/L (98-107); CREATININE 0.53 mg/dl (0.60-1.20); GLUCOSE 114 mg/dl (70-99); POTASSIUM 4.5 mmol/L (3.5-5.1); SODIUM 139 mmol/L (136-145)
[2016-07-25 12:55] LABS: CKMB/CK RATIO 0.8 (0-3.0)
[2016-07-25 12:55] LABS: URINE APPEARANCE CLEAR (CLEAR); URINE BILIRUBIN NEG (NEG); URINE COLOR YELLOW; URINE NITRITE NEG (NEG); URINE SPECIFIC GRAVITY 1.021 (1.000-1.030); UROBILINOGEN NEG (NEG); ZZURINE CULT IF INDIC CATH NO
[2016-07-25 12:57] LABS: MANUAL MICROSCOPIC REQUIRED? NO; REVIEW REQ? NO
[2016-07-25] MEDS ORDERED: ONDANSETRON INJ 2 MG/ML 2 ML VIAL IV PRN ×2 (14:15→14:45)
[2016-07-25] MEDS ORDERED: GLUCOSE 40% GEL 15 GM TUBE PO PRN (14:45)
[2016-07-25] MEDS ORDERED: GLUCAGON FOR INJ 1 MG VIAL SQ PRN (14:45)
[2016-07-25] MEDS ORDERED: GLUCOSE 10 TABS/TUBE PO PRN (14:45)
[2016-07-25] MEDS ORDERED: DEXTROSE 50% 50 ML SYR IV PRN (14:45)
--- NOTE | 2016-07-25 15:11 | History and Physical ---
"History & Physical Date & Time of Service: Jul 25, 2016 at 14:41 Chief Complaint: Vomiting/ Abdominal Pain Primary Care Physician: Laine Sheppard History of Present Illness Source: [facility] This is a 71 yo F with PMHx of Glioblastoma, Hyperlipidemia, DM II, hypothyroidism, unspecified convulsions, major depressive disorder and recurrent diarrhea who presents with multiple episodes of vomiting today per [facility]. Pt is from [facility] and is essentially nonverbal at bedside, but occasionally answers yes to my questions. The history was obtained from nursing staff. Pt vomitted 4 times between 6a-2p, yellow bilious liquid. She has an NG tube in place which was placed on 07/01 on prior hospitalization. She had been tolerating tube feeds well for the past 2 weeks without difficulty. She has had loose stools for a few days prior to episode of vomiting today. A c.diff sample was sent by [facility] yesterday. No records of fever were documented at SNF. The patient has a roomate although nursing denies the roommate has been sick or had similar symptoms. Here the patient has been afebrile, but tachycardic with HR in the 90s. She received 1 L NSS bolus and zofran IV in the ED. She has not vomited since being in the ED. Pt will be admitted for medical management. Labs results include WBC=2.39, RBC=3.96, PLT-114, +anisocytosis, Cr. 0.53, Ty=305, K=4.5, Albumin=2.9. Past Medical/Surgical History Medical Problems: (1) Glioblastoma multiforme Status: Chronic (2) Hypercholesteremia Status: Chronic (3) Hypertension Status: Chronic (4) Hypothyroid Status: Chronic Family History Cancer Diabetes mellitus Heart disease Stroke Social History Smoking Status: Unknown if Ever Smoked Drug Use: none Marital Status: Housing status: lives alone, lives with significant other Occupational Status: retired Immunizations History of Influenza Vaccine: Yes History of Tetanus Vaccine?: UTD History of Pneumococcal: Yes History of Hepatitis B Vaccine: No Multi-Drug Resistant Organisms History of MDRO: No Allergies Coded Allergies: No Known Allergies (Unverified , 07/07/16) Home Medications Scheduled Acetaminophen (Tylenol), 650 MG Q6 Cholecalciferol (Vitamin D3), 1 TAB NG DAILY Dexamethasone (Decadron), 1 TAB NG BID Docusate Sodium (Docusate Sodium), 10 ML NG BID Enoxaparin Sodium (Lovenox), 30 MG SQ Q12 Insulin Lispro (Human) (Humalog), SQ ACHS Levetiracetam (Keppra), 15 ML NG Q12 Levothyroxine Sodium (Levothyroxine Sodium), 1 TAB PO DAILY Multivitamins/Minerals (Mvi With Minerals), 5 ML NG DAILY Omeprazole (Prilosec), 20 MG PO DAILY Sennosides (Senna), 10 ML NG BID Simvastatin (Zocor), 1 TAB PO DAILY Venlafaxine Hcl (Effexor), 37.5 MG PO BID [gabapentin solution], 16 ML NG TID Miscellaneous Medications Bisacodyl (Dulcolax), 1 SUPP ND Magnesium Hydroxide (Milk Of Magnesia), 30 ML PO Nystatin/Triamcinolone (Mycogen ||) Sodium Phosphates (Fleet Enema Six Pack) Review of Systems ROS unobtainable due to mental status. No family or caregiver at bedside. Physical Exam Vital Signs Date Time Temp Pulse Resp B/P Pulse Ox O2 Delivery O2 Flow Rate FiO2 07/25/16 13:11 95 07/25/16 10:53 36.5 94 18 129/82 100 Room Air 07/25/16 10:49 94 General Appearance: WD/WN, + mild distress, + obese Head: normocephalic, + pertinent finding (NG tube in left nare. Dried blood surrounding nare. ) ENT: hearing grossly normal, + pertinent finding (mucous membranes dry) Neck: supple, no JVD Respiratory/Chest: chest non-tender, lungs clear, no respiratory distress, no accessory muscle use, + pertinent finding (L chest wall with mediport in place. ) Cardiovascular: no murmur, normal peripheral pulses, + tachycardia Abdomen/GI: normal bowel sounds, soft, no organomegaly Extremities/Musculoskelatal: normal inspection, no calf tenderness, no pedal edema Neurologic/Psych: alert, + disoriented, + pertinent finding (unable to follow my commands, answers yes occasionally but doesnt say anything else. ) Skin: warm/dry Diagnostics Laboratory Results Results Past 24 Hours Test 07/25/16 12:20 07/25/16 12:40 Range/Units White Blood Count 2.39 4.8-10.8 K/uL Red Blood Count 3.96 4.2-5.4 M/uL Hemoglobin 13.0 12.0-16.0 g/dL Hematocrit 38.0 37-47 % Mean Corpuscular Volume 96.0 80-100 fL Mean Corpuscular Hemoglobin 32.8 25-34 pg Mean Corpuscular Hemoglobin Concent 34.2 32-36 g/dl Platelet Count 114 130-400 K/uL Mean Platelet Volume 10.2 7.4-10.4 fL Neutrophils (%) (Auto) 62.0 % Lymphocytes (%) (Auto) 31.4 % Monocytes (%) (Auto) 4.6 % Eosinophils (%) (Auto) 0.8 % Basophils (%) (Auto) 0.4 % Neutrophils # (Auto) 1.48 1.4-6.5 K/uL Lymphocytes # (Auto) 0.75 1.2-3.4 K/uL Monocytes # (Auto) 0.11 0.11-0.59 K/uL Eosinophils # (Auto) 0.02 0-0.5 K/uL Basophils # (Auto) 0.01 0-0.2 K/uL RDW Standard Deviation 56.1 36.4-46.3 fL RDW Coefficient of Variation 16.4 11.5-14.5 % Immature Granulocyte % (Auto) 0.8 % Immature Granulocyte # (Auto) 0.02 0.00-0.02 K/uL Nucleated RBC Absolute Count (auto) 0.04 0-0 K/uL Nucleated Red Blood Cells % 1.8 % Anisocytosis PRESENT Prothrombin Time 10.6 9.0-12.0 SECONDS Prothromb Time International Ratio 1.0 0.9-1.1 Activated Partial Thromboplast Time 27.7 21.0-31.0 SECONDS Partial Thromboplastin Ratio 1.1 Sodium Level 139 136-145 mmol/L Potassium Level 4.5 3.5-5.1 mmol/L Chloride Level 100 98-107 mmol/L Carbon Dioxide Level 29 21-32 mmol/L Anion Gap 10.0 3-11 mmol/L Blood Urea Nitrogen 27 7-18 mg/dl Creatinine 0.53 0.60-1.20 mg/dl Estimated GFR () 112.3 Estimated GFR (Non- 96.9 BUN/Creatinine Ratio 50.0 10-20 Random Glucose 114 70-99 mg/dl Calcium Level 8.7 8.5-10.1 mg/dl Total Bilirubin 0.5 0.2-1 mg/dl Direct Bilirubin 0.1 0-0.2 mg/dl Aspartate Amino Transf (AST/SGOT) 27 15-37 U/L Alanine Aminotransferase (ALT/SGPT) 57 12-78 U/L Alkaline Phosphatase 75 45-117 U/L Total Creatine Kinase 102 26-192 U/L Creatine Kinase MB 0.8 0.5-3.6 ng/ml Creatine Kinase MB Ratio 0.8 0-3.0 Troponin I < 0.015 0-0.045 ng/ml Total Protein 6.2 6.4-8.2 gm/dl Albumin 2.9 3.4-5.0 gm/dl Lipase 127 73-393 U/L Urine Color YELLOW Urine Appearance CLEAR CLEAR Urine pH 7.0 4.5-7.5 Urine Specific [place] 1.021 1.000-1.030 Urine Protein NEG NEG Urine Glucose (UA) NEG NEG Urine Ketones NEG NEG Urine Occult Blood NEG NEG Urine Nitrite NEG NEG Urine Bilirubin NEG NEG Urine Urobilinogen NEG NEG Urine Leukocyte Esterase NEG NEG Urine WBC (Auto) 1-5 0-5 /hpf Urine RBC (Auto) 0-4 0-4 /hpf Urine Hyaline Casts (Auto) 1-5 0-5 /lpf Urine Epithelial Cells (Auto) 5-10 0-5 /lpf Urine Bacteria (Auto) NEG NEG Diagnostic Radiology HEAD CT NONCONTRAST CT DOSE: 1572.10 mGy.cm HISTORY: Nausea. Vomiting. vomiting and altered MS TECHNIQUE: Multiaxial CT images of the head were performed without the use of intravenous contrast. Comparison: 06/20/2016. FINDINGS: postoperative changes of the right cerebral hemisphere again noted. High density calcium deposits are noted which appear similar. There is mild calcification of the tentorium on the right. There may be a subtle increase in edematous change of the posterior right temporal lobe. Partial effacement of the right occipital lobe, subtle deformity right lateral quadrigeminal plate cistern are stable. Chronic periventricular deep white matter chronic small vessel change is noted. Craniotomy flap is in good position. Impression: 1. Pre-existing postoperative as well as encephalomalacia and calcification changes of the right superior parietal occipital region. 2. Slight increase in lateral temporal lobe edematous change transaxial image 12. 3. No evidence for midline shift or acute intracranial hemorrhage. Electronically signed by: Roderick Ventura M.D. 07/25/2016 11:59 AM Dictated Date/Time: 07/25/2016 11:57 AM The status of this report is Signed. CHEST ONE VIEW PORTABLE CLINICAL HISTORY: ABDOMINAL PAIN/GI pain. Nausea. COMPARISON STUDY: 07/07/2016 FINDINGS: Feeding tube mid stomach. Lungs are grossly clear. Slight chronic accentuation left basilar markings. IMPRESSION: No acute process. Chronic and post operative change. Electronically signed by: Roderick Ventura M.D. 07/25/2016 12:06 PM Dictated Date/Time: 07/25/2016 12:00 PM The status of this report is Signed. ABDOMEN AND PELVIS CT WITHOUT CONTRAST CT DOSE: HISTORY: Pain. Nausea. vomiting and altered MS TECHNIQUE: Multiaxial CT images of the abdomen and pelvis were performed without contrast. COMPARISON STUDY: 06/20/2016 FINDINGS: Minimal bibasilar dependent atelectatic change. Size and configuration of liver spleen and pancreas are unremarkable. There is a nasogastric tube within the mid stomach. Kidneys negative for calcification or hydronephrosis. Bowel pattern is considered nonobstructive throughout. Appendix is normal. There are several injection site granulomas of the anterior abdominal wall. pathologist bladder is midline. There is no significant free fluid within the pelvic cul-de-sac. IMPRESSION: No acute process of the abdomen or pelvis. No change from the prior exam. Electronically signed by: Roderick Ventura M.D. 07/25/2016 12:12 PM Dictated Date/Time: 07/25/2016 12:10 PM The status of this report is Signed. EKG Vent. rate 91 BPM ND interval 128 ms QRS duration 66 ms QT/QTc 374/460 ms P-R-T axes 49 [address] changes or signs of ischemia Impression Assessment and Plan This is a 71 yo F with PMHx of Glioblastoma, Hyperlipidemia, DM II, hypothyroidism, unspecified convulsions, major depressive disorder and recurrent diarrhea who presents with multiple episodes of vomiting today per [facility]. Pt is from [facility] and is essentially nonverbal at bedside. Vomiting, loose stools, abdominal pain. - Will admit to med/surg - NGT in place, hold tube feeds for now - 1 L NSS given in the ED, will continue 100 mL/hr - WBC decreased at 2.39, RBC decreased as well. - Continue supportive tx with zofran, fluids, tylenol - Check stool studies: c.diff, culture, o&p - Holding bowel regimen due to loose stools (was on several agents BID which may have been contributing) - Follow am labs - Nutrition consulted for energy requirements and type of nutrition available while in the hospital Hx Glioblastoma, unspecific convulsive disorder - Continue decadron 16 mg daily - Cont keppra 1500 mL q12H, gabapentin 800 mL TID through NGT Thrombocytopenia - PLT 114, was scheduled for CBC to monitor this on 07/27. Unknown source at this time Hyperlipidemia - Cont statin Hypothyroidism - Cont levothyroxine 25 mcg daily DM - ISS with accuchecks Q6H while tube feeds on hold - Hypoglycemia prophylactic agents ordered prn Major Depressive disorder, recurrent - Continue Effexor 37.5 BID DVT ppx: Lovenox 30 mg q12H Code Status: FULL CODE Disposition: From [facility], will speak with CM about D/C planning. Level of Care Med/Surg Resuscitation Status FULL RESUSCITATION VTE Prophylaxis VTE Risk Assessment Done? Y/N: Yes Risk Level: Moderate Given or contraindicated: Enoxaparin (Lovenox)SQ Reviewed: Pt Seen/Exam by Me, RN Notes, HO Notes, Prior Records, Labs, RAD, EKG History I agree with PA note with some modifications as below This is a 71 yo F with PMHx of Glioblastoma, Hyperlipidemia, DM II, hypothyroidism, unspecified convulsions, major depressive disorder and recurrent diarrhea who presents with multiple episodes of vomiting today per [facility]. Pt is from [facility] and is essentially nonverbal at bedside. ROS cant be obtained, patient is non verbal General Appearance: WD/WN, no apparent distress Eye Exam: bilateral eye normal inspection Ears, Nose, Throat: hearing grossly normal, pharynx normal Neck: non-tender, supple Respiratory: chest non-tender, normal breath sounds, no respiratory distress Cardiovascular: normal peripheral pulses, no edema Gastrointestinal: normal bowel sounds, soft Extremities: normal range of motion, normal inspection Neurologic/Psychiatric: other (lethargic) Skin Characteristics: normal color Assessment/Plan This is a 71 yo F with PMHx of Glioblastoma, Hyperlipidemia, DM II, hypothyroidism, unspecified convulsions, major depressive disorder and recurrent diarrhea who presents with multiple episodes of vomiting today per [facility]. Pt is from [facility] and is essentially nonverbal at bedside. Vomiting, loose stools, abdominal pain. agree with med/surg admit continue nss 100 mL/hr Continue supportive tx with zofran, fluids, tylenol check c.diff, culture, o&p Nutrition consulted for energy requirements and type of nutrition available while in the hospital Hx Glioblastoma, unspecific convulsive disorder Continue decadron 16 mg daily Cont keppra 1500 mL q12H, gabapentin 800 mL TID through NGT Thrombocytopenia platelets 114, was scheduled for CBC to monitor this on 07/27. Unknown source at this time Hyperlipidemia Cont statin Hypothyroidism Cont levothyroxine 25 mcg daily T2DM ISS with accuchecks Q6H while tube feeds on hold Hypoglycemia prophylactic agents ordered prn Major Depressive disorder, recurrent Continue Effexor 37.5 BID DVT proph: Lovenox 30 mg q12H Code Status: FULL CODE Disposition: From [facility] case discussed with MYA Giron time spent 45 min"
[2016-07-25] MEDS ORDERED: PATIENT'S HEIGHT AND/OR WEIGHT NEEDED SCH (15:30)
[2016-07-25] MEDS ORDERED: INSULIN ASPART 100 UNITS/ML 3 ML PEN SC SCH (16:00)
[2016-07-25 16:50] VITALS: BP 139/81; PULSE 96; TEMP 37.3; O2SAT 95
[2016-07-25] MEDS: ACETAMINOPHEN 650 MG SUPP PR SCH ×2 (19:24→23:57)
[2016-07-25] MEDS: SODIUM CHLORIDE 0.9% 1000ML 1,000 ML IV SCH (19:29)
[2016-07-25 19:34] VITALS: Ht 165.1 cm; Wt 64.7 kg
[2016-07-25] MEDS: GABAPENTIN 250 MG/5 ML 470 ML BTL NG SCH (20:48)
[2016-07-25] MEDS: LEVETIRACETAM ORAL SOLN 100MG/ML PO SCH (20:53)
[2016-07-25] MEDS: DEXAMETHASONE 4 MG TAB PO SCH (20:55)
[2016-07-25] MEDS: VENLAFAXINE HCL 37.5 MG TAB NG SCH (20:58)
[2016-07-25] MEDS: ENOXAPARIN 30 MG/0.3 ML SYR SQ SCH (21:02)
--- NOTE | 2016-07-25 21:47 | DIAGNOSTIC IMAGING REPORT ---
ULTRASOUND VENOUS DOPPLER LWR EXT BILA CLINICAL HISTORY: Brain tumor, leg swelling.. COMPARISON STUDY: 12/07/2015 FINDINGS: Real-time and color flow Doppler imaging were performed. Flow was seen within the femoral, popliteal and calf veins with no intraluminal thrombus demonstrated. The saphenous vein is patent. IMPRESSION: No evidence of lower extremity DVT Electronically signed by: Jose L Peña M.D. 07/25/2016 9:46 PM Dictated Date/Time: 07/25/2016 9:45 PM
[2016-07-25] MEDS ORDERED: NURSING VERBAL MED ORDER ONE (22:00)
[2016-07-25 22:52] VITALS: BP 109/67; PULSE 79; TEMP 36.6; O2SAT 100
[2016-07-25] MEDS: INSULIN ASPART 100 UNITS/ML 3 ML PEN SC SCH (23:57)
[2016-07-26] MEDS: SODIUM CHLORIDE 0.9% 1000ML 1,000 ML IV SCH ×3 (01:37→20:15)
[2016-07-26] MEDS: INSULIN ASPART 100 UNITS/ML 3 ML PEN SC SCH ×3 (06:00→18:00)
[2016-07-26] MEDS: ACETAMINOPHEN 650 MG SUPP PR SCH ×3 (06:09→18:18)
[2016-07-26] MEDS: LEVOTHYROXINE 25 MCG TAB NG SCH (06:11)
[2016-07-26 07:35] LABS: HEMATOCRIT 36.6 % (37-47); MEAN CELL VOLUME 96.6 fL (80-100); MEAN CORPUSCULAR HEMOGLOBIN 32.7 pg (25-34); MEAN CORPUSCULAR HGB CONC 33.9 g/dl (32-36); MEAN PLATELET VOLUME 10.5 fL (7.4-10.4); PLATELET COUNT 124 K/uL (130-400); RED BLOOD COUNT 3.79 M/uL (4.2-5.4); WHITE BLOOD COUNT 2.08 K/uL (4.8-10.8)
[2016-07-26 08:04] LABS: BUN/CREATININE RATIO 29.4 (10-20); CALCIUM 8.7 mg/dl (8.5-10.1); CREATININE 0.52 mg/dl (0.60-1.20); POTASSIUM 4.6 mmol/L (3.5-5.1)
[2016-07-26 08:15] LABS: BASO % 0.5 %; BASO ABS # 0.01 K/uL (0-0.2); COMPLETE YES; EOS % 0.5 %; LYMPH % 28.8 %; MONO % 5.3 %; NEUT % 64.9 %
[2016-07-26 08:17] VITALS: BP 119/63; PULSE 78; TEMP 36.4; O2SAT 95
--- NOTE | 2016-07-26 08:23 | Clinical Documentation Query ---
ABHIJIT Mosley : CLINICAL DOCUMENTATION QUERIES QUERY 1 OF 2 Patient is a 71 year old female admitted with vomiting, loose stools, and abdominal pain. CT scan of the abdomen negative for acute process. She is being treated with IVF and antiemetics, and further evaluated with stool studies, serial labs, and dietary consultation. As appropriate, consider a diagnosis of the presenting symptoms as suggested below as this improves DRG assignment. Thank you. In your clinical opinion is this patient being managed for: ( X ) Gastroenteritis ( ) Other explanation of clinical findings (Please Explain) ( ) Unable to determine (Please Define) ( ) Need to Discuss ( ) Not Agree The medical record reflects the following clinical findings, treatment, and risk factors. Clinical Indicators: As above Treatment: IVF, antiemetics, supportive care, stool studies, serial labs, dietary consult Risk Factors: senior care residence, age, seasonal infectious disease QUERY 2 OF 2 Noted dietary consult in the setting of vomiting in an essentially non-verbal patient in the setting of glioblastoma with an unspecified convulsive disorder. EMR review demonstrates that patient has lost 16.1% of her body weight since 04/18/16. Combined with increasing lethargy and ability to self support ADL's since June 2016, tube feedings initiated with possible plan for PEG tube. Multiple ED visits with reported symptoms of vomiting and/or diarrhea in recent months. As appropriate, consider clarification as suggested below as this directly impacts DRG assignment. Thank you. In your clinical opinion is this patient being managed for: ( X ) Severe protein-calorie malnutrition ( ) Other explanation of clinical findings (Please Explain) ( ) Unable to determine (Please Define) ( ) Need to Discuss ( ) Not Agree The medical record reflects the following clinical findings, treatment, and risk factors. Clinical Indicators: 16.1% weight loss in past 3 months, poor intake, functional demise Treatment: Dietary consultation Risk Factors: Recurrent glioblastoma, lethargy in the setting of cancer and associated chemotherapy Malnutrition in Chronic Illness Moderate or Severe Malnutrition defined by 2 of the following 6 criteria: CHARACTERISTICS MODERATE MALNUTRITION SEVERE MALNUTRITION ENERGY INTAKE <75% of estimated energyrequirement for > 1month <75% of estimated energyrequirement for > 1 month WEIGHT LOSS 5%/1 month7.5%/3 [id number]%/[id number]%/1year >5%/1 month>7.5%/3 months>10%/6months>20%/1year BODY FAT*loss of SQ fat from the orbits, triceps, or fat overlying the ribs MILD SEVERE MUSCLE MASS*muscle wasting at the temples, clavicles, shoulders, interosseous spaces, scapula, thigh, calf MILD SEVERE FLUID ACCUMULATION*localized or generalized edema of the extremities, vulva, scrotum weight loss may be masked by edema MILD SEVERE PACKING MACHINE TENDER STRENGTH N/A measurably decreased per the device's standards Please clarify and document your clinical opinion in the progress notes and discharge summary. Terms such as "probable", "suspected", "likely", "questionable", "possible", or "still to be ruled out" are acceptable. IF IN AGREEMENT, YOU MUST DOCUMENT ABOVE DIAGNOSTIC STATEMENT IN DAILY PROGRESS NOTES AND DISCHARGE SUMMARY. This document is not part of the patient's record. Thank You, Lan Hayes RN [phone]
[2016-07-26] MEDS: MULTIVITAMINS W/MINERALS 15ML UDP NG SCH (08:59)
[2016-07-26] MEDS: VENLAFAXINE HCL 37.5 MG TAB NG SCH ×2 (08:59→21:20)
[2016-07-26] MEDS: SIMVASTATIN 20 MG TAB NG SCH (09:00)
[2016-07-26] MEDS ORDERED: CHOLECALCIFEROL 1000 INTER.UNIT TAB NG SCH (09:00)
[2016-07-26] MEDS: DEXAMETHASONE 4 MG TAB PO SCH ×2 (09:01→21:21)
[2016-07-26] MEDS: ENOXAPARIN 30 MG/0.3 ML SYR SQ SCH ×2 (09:01→21:21)
[2016-07-26] MEDS: LEVETIRACETAM ORAL SOLN 100MG/ML PO SCH ×2 (09:01→21:21)
[2016-07-26] MEDS: CHOLECALCIFEROL 1000 INTER.UNIT TAB NG SCH (09:02)
[2016-07-26] MEDS: GABAPENTIN 250 MG/5 ML 470 ML BTL NG SCH ×3 (09:03→21:25)
[2016-07-26] MEDS ORDERED: NURSING DECISION MEDICATION ORDER SCH (13:15)
[2016-07-26] MEDS ORDERED: EUCERIN CR 120 GM JAR EXT PRN (13:15)
--- NOTE | 2016-07-26 14:05 | Progress Note ---
Subjective Date of Service: Jul 26, 2016. Subjective Pt evaluation today including: conversation w/ patient, physical exam, chart review, lab review, review of studies, review of inpatient medication list Problem List Medical Problems: (1) Altered mental state Status: Acute (2) Altered mental status Status: Acute (3) Ataxia Status: Acute (4) Cerebral edema Status: Acute (5) Dehydration Status: Acute (6) Dehydration Status: Acute (7) Diarrhea Status: Acute (8) Diarrhea Status: Acute (9) Generalized weakness Status: Acute (10) Glial neoplasm of brain Status: Acute (11) Glioblastoma determined by biopsy of brain Status: Acute (12) History of brain tumor Status: Acute (13) Impaired nasal gastric feeding tube Status: Acute (14) Intractable vomiting Status: Acute (15) Vomiting Status: Acute Social History Problems: (1) History of craniotomy Status: Acute Review of Systems unable to obtain as pt has dementia and brain tumor Objective Vital Signs Date Time Temp Pulse Resp B/P Pulse Ox O2 Delivery O2 Flow Rate FiO2 07/26/16 08:17 36.4 78 16 119/63 95 Room Air 07/26/16 08:14 Room Air 07/25/16 23:59 Room Air 07/25/16 22:52 36.6 79 16 109/67 100 Room Air 07/25/16 16:50 37.3 96 16 139/81 95 Room Air 07/25/16 15:00 100 16 138/75 97 Physical Exam General Appearance: WD/WN, no apparent distress Neck: supple, no adenopathy Respiratory/Chest: lungs clear, normal breath sounds Cardiovascular: no edema, no gallop Abdomen: non tender, soft Laboratory Results Last 24 Hours Test 07/25/16 14:58 07/25/16 23:56 07/26/16 06:02 07/26/16 06:35 Bedside Glucose 107 mg/dl 125 mg/dl White Blood Count 2.08 K/uL Red Blood Count 3.79 M/uL Hemoglobin 12.4 g/dL Hematocrit 36.6 % Mean Corpuscular Volume 96.6 fL Mean Corpuscular Hemoglobin 32.7 pg Mean Corpuscular Hemoglobin Concent 33.9 g/dl Platelet Count 124 K/uL Mean Platelet Volume 10.5 fL Neutrophils (%) (Auto) 64.9 % Lymphocytes (%) (Auto) 28.8 % Monocytes (%) (Auto) 5.3 % Eosinophils (%) (Auto) 0.5 % Basophils (%) (Auto) 0.5 % Neutrophils # (Auto) 1.35 K/uL Lymphocytes # (Auto) 0.60 K/uL Monocytes # (Auto) 0.11 K/uL Eosinophils # (Auto) 0.01 K/uL Basophils # (Auto) 0.01 K/uL RDW Standard Deviation 57.0 fL RDW Coefficient of Variation 16.7 % Immature Granulocyte % (Auto) 0.0 % Immature Granulocyte # (Auto) 0.00 K/uL Nucleated RBC Absolute Count (auto) 0.03 K/uL Nucleated Red Blood Cells % 1.4 % Sodium Level 139 mmol/L Potassium Level 4.6 mmol/L Chloride Level 106 mmol/L Carbon Dioxide Level 25 mmol/L Anion Gap 8.0 mmol/L Blood Urea Nitrogen 15 mg/dl Creatinine 0.52 mg/dl Est Creatinine Clear Calc Drug Dose 91.9 ml/min Estimated GFR () 113.0 Estimated GFR (Non- 97.5 BUN/Creatinine Ratio 29.4 Random Glucose 106 mg/dl Calcium Level 8.7 mg/dl Test 07/26/16 11:48 Bedside Glucose 102 mg/dl Assessment and Plan This is a 71 yo F with PMHx of Glioblastoma, Hyperlipidemia, DM II, hypothyroidism, unspecified convulsions, major depressive disorder and recurrent diarrhea who presents with multiple episodes of vomiting today per skilled nursing. Pt is from [facility] and is essentially nonverbal at bedside. Vomiting, loose stools likely from gastroenteritis with underlying severe protein malnutrition - Will admit to med/surg - NGT in place, start on tube feeds a low rate - 1 L NSS given in the ED, will continue 100 mL/hr - WBC decreased at 2.39, RBC decreased as well. - Continue supportive tx with zofran, fluids, tylenol - Holding bowel regimen due to loose stools (was on several agents BID which may have been contributing) - Follow am labs - Nutrition consulted for energy requirements and type of nutrition available while in the hospital Hx Glioblastoma, unspecific convulsive disorder - Continue decadron 16 mg daily - Cont keppra 1500 mL q12H, gabapentin 800 mL TID through NGT Thrombocytopenia - PLT 114, was scheduled for CBC to monitor this on 07/27. Unknown source at this time Hyperlipidemia - Cont statin Hypothyroidism - Cont levothyroxine 25 mcg daily DM - ISS with accuchecks Q6H while tube feeds on hold - Hypoglycemia prophylactic agents ordered prn Major Depressive disorder, recurrent - Continue Effexor 37.5 BID DVT ppx: Lovenox 30 mg q12H Code Status: FULL CODE
[2016-07-26] MEDS: FIBERSOURCE HN 1000ML BAG GT SCH ×2 (15:00)
[2016-07-26 15:31] VITALS: BP 121/84; PULSE 87; TEMP 36.4; O2SAT 96
[2016-07-26 16:00] VITALS: O2SAT 96
[2016-07-26] MEDS: TUBE FEEDING WATER FLUSH GT SCH (18:19)
[2016-07-26 23:06] VITALS: BP 138/81; PULSE 89; TEMP 36.3; O2SAT 97
[2016-07-27] MEDS: ACETAMINOPHEN 650 MG SUPP PR SCH ×4 (00:04→20:13)
[2016-07-27] MEDS: TUBE FEEDING WATER FLUSH GT SCH ×4 (00:04→18:00)
[2016-07-27] MEDS: SODIUM CHLORIDE 0.9% 1000ML 1,000 ML IV SCH ×2 (05:48→16:00)
[2016-07-27] MEDS: LEVOTHYROXINE 25 MCG TAB NG SCH (05:49)
[2016-07-27] MEDS: INSULIN ASPART 100 UNITS/ML 3 ML PEN SC SCH ×4 (05:49→18:00)
[2016-07-27 08:02] LABS: COMPLETE YES; EOS % 0.6 %; HEMATOCRIT 32.8 % (37-47); IG% 0.6 %; LYMPH % 29.1 %; LYMPH ABS # 0.52 K/uL (1.2-3.4); MEAN CELL VOLUME 96.2 fL (80-100); MEAN CORPUSCULAR HEMOGLOBIN 32.6 pg (25-34); MEAN CORPUSCULAR HGB CONC 33.8 g/dl (32-36); MEAN PLATELET VOLUME 9.8 fL (7.4-10.4); MONO % 3.9 %; NEUT % 65.8 %; PLATELET COUNT 147 K/uL (130-400); RED BLOOD COUNT 3.41 M/uL (4.2-5.4); WHITE BLOOD COUNT 1.79 K/uL (4.8-10.8)
[2016-07-27 08:03] VITALS: BP 145/80; PULSE 84; TEMP 36.7; O2SAT 97
[2016-07-27 08:35] LABS: BUN/CREATININE RATIO 21.8 (10-20); CALCIUM 8.8 mg/dl (8.5-10.1); CREATININE 0.55 mg/dl (0.60-1.20)
--- NOTE | 2016-07-27 08:35 | Progress Note ---
Subjective Date of Service: Jul 27, 2016. Subjective Pt evaluation today including: conversation w/ patient, conversation w/ family , physical exam, chart review, lab review, review of studies, conversation w/ hr consultant, review of inpatient medication list Patient is nonverbal, but looks comfortable, no anxiety, no obvious pain expression, Nurse report has a big bowel movement, no diarrhea NG tube feeding to the goal, no residual Problem List Medical Problems: (1) Altered mental state Status: Acute (2) Altered mental status Status: Acute (3) Ataxia Status: Acute (4) Cerebral edema Status: Acute (5) Dehydration Status: Acute (6) Dehydration Status: Acute (7) Diarrhea Status: Acute (8) Diarrhea Status: Acute (9) Generalized weakness Status: Acute (10) Glial neoplasm of brain Status: Acute (11) Glioblastoma determined by biopsy of brain Status: Acute (12) History of brain tumor Status: Acute (13) Impaired nasal gastric feeding tube Status: Acute (14) Intractable vomiting Status: Acute (15) Vomiting Status: Acute Social History Problems: (1) History of craniotomy Status: Acute Review of Systems Constitutional: + problem reported ('s name ED because patient is not verbal), No chills, No fever Objective Vital Signs Date Time Temp Pulse Resp B/P Pulse Ox O2 Delivery O2 Flow Rate FiO2 07/27/16 08:03 36.7 84 16 145/80 97 Room Air 07/27/16 00:14 Room Air 07/26/16 23:06 36.3 89 14 138/81 97 Room Air 07/26/16 16:00 96 Room Air 07/26/16 15:31 36.4 87 18 121/84 96 Room Air Physical Exam General Appearance: + cachetic, + thin, + pertinent finding (frail, chronically ill-looking) Eyes: normal inspection, PERRL ENT: normal ENT inspection, + pertinent finding (NG tube in place) Neck: supple Respiratory/Chest: chest non-tender, + decreased breath sounds Cardiovascular: regular rate, rhythm, no edema, no gallop Abdomen: normal bowel sounds, non tender, soft Extremities: normal range of motion, non-tender, normal inspection Neurologic/Psychiatric: alert, + pertinent finding (droop patient is not verbal ) Skin: no rash Laboratory Results Last 24 Hours Test 07/26/16 11:48 07/26/16 18:19 07/26/16 20:48 07/26/16 23:55 Bedside Glucose 102 mg/dl 124 mg/dl 123 mg/dl 132 mg/dl Test 07/27/16 05:47 07/27/16 07:31 07/27/16 07:59 Bedside Glucose 133 mg/dl White Blood Count 1.79 K/uL Red Blood Count 3.41 M/uL Hemoglobin 11.1 g/dL Hematocrit 32.8 % Mean Corpuscular Volume 96.2 fL Mean Corpuscular Hemoglobin 32.6 pg Mean Corpuscular Hemoglobin Concent 33.8 g/dl Platelet Count 147 K/uL Mean Platelet Volume 9.8 fL Neutrophils (%) (Auto) 65.8 % Lymphocytes (%) (Auto) 29.1 % Monocytes (%) (Auto) 3.9 % Eosinophils (%) (Auto) 0.6 % Basophils (%) (Auto) 0.0 % Neutrophils # (Auto) 1.18 K/uL Lymphocytes # (Auto) 0.52 K/uL Monocytes # (Auto) 0.07 K/uL Eosinophils # (Auto) 0.01 K/uL Basophils # (Auto) 0.00 K/uL RDW Standard Deviation 56.5 fL RDW Coefficient of Variation 16.5 % Immature Granulocyte % (Auto) 0.6 % Immature Granulocyte # (Auto) 0.01 K/uL Nucleated RBC Absolute Count (auto) 0.02 K/uL Nucleated Red Blood Cells % 1.1 % Assessment and Plan 71 yo F with PMHx of Glioblastoma, Hyperlipidemia, DM II, hypothyroidism, unspecified convulsions, major depressive disorder and recurrent diarrhea who presents with multiple episodes of vomiting Was admitted on 07/25/2016 Pt is from [facility] and is essentially nonverbal at bedside. Vomiting, loose stools likely from gastroenteritis with underlying severe protein malnutrition Possible from the multiple factors, such as reaction to recent to chemotherapy therapy, from nerve brain edema was per has CT studies, or from gastro- enteritis NGT in place, continue feeding Was on 1 L NSS given in the ED, will discontinue Patient was having PEG tube feeding when she was in [facility], seem removed PEG by herself in early Jun 2016 Planning continue temporary NG tube feeding and at least 6 week and then reevaluation for their PEG tube placement in early August 2016 No need to be reevaluation in [facility] Pancytopenia upon admission, possible from side effect of recent or chemotherapy treatment in [facility], because bone marrow suppression Neutropenia is still low Thrombocytopenia is better Hemoglobin is stable Hx Glioblastoma, unspecific convulsive disorder - Continue decadron 16 mg daily - Cont keppra 1500 mL q12H, gabapentin 800 mL TID through NGT Patient was having follow-up with his [facility] Hyperlipidemia - Cont statin Hypothyroidism - Cont levothyroxine 25 mcg daily DM - ISS with accuchecks Q6H while tube feeds on hold - Hypoglycemia prophylactic agents ordered prn Major Depressive disorder, recurrent - Continue Effexor 37.5 BID DVT ppx: Lovenox 30 mg q12H I called to daughter, who is power of admitted attorneys as well, discussed with care plan , discussed with prognosis, I believe glioblastoma is very malignant , the life expectancy is very limited Discussed about palliative care and hospice care, I encouraged daughter to do not, we'll have palliative care consult, social sciences lecturer involved, Possible discharge back to shelter hospice care, Code Status:DNR after talk to daughter Continued [facility] stay due to: multiple IV medications needed Discharge planning: home
[2016-07-27] MEDS: MULTIVITAMINS W/MINERALS 15ML UDP NG SCH (10:25)
[2016-07-27] MEDS: FIBERSOURCE HN 1000ML BAG GT SCH ×2 (10:25)
[2016-07-27] MEDS: GABAPENTIN 250 MG/5 ML 470 ML BTL NG SCH ×3 (10:25→20:38)
[2016-07-27] MEDS: CHOLECALCIFEROL 1000 INTER.UNIT TAB NG SCH (10:26)
[2016-07-27] MEDS: ENOXAPARIN 30 MG/0.3 ML SYR SQ SCH ×2 (10:26→20:16)
[2016-07-27] MEDS: VENLAFAXINE HCL 37.5 MG TAB NG SCH ×2 (10:26→20:14)
[2016-07-27] MEDS: LEVETIRACETAM ORAL SOLN 100MG/ML PO SCH ×2 (10:26→20:15)
[2016-07-27] MEDS: DEXAMETHASONE 4 MG TAB PO SCH ×2 (10:26→20:14)
[2016-07-27] MEDS: SIMVASTATIN 20 MG TAB NG SCH (10:26)
--- NOTE | 2016-07-27 13:40 | Palliative Care Consultation ---
Consultation Date of Consultation: Jul 27, 2016. Requesting Physician: Dr. Mccormick Attending Physician: Dr. Mccormick Reason for Consultation: Goals of care History of Present Illness This 71 year old female patient presented to the ED from the [facility] two days ago with vomiting and abdominal pain. Per report, the patient vomited about four times that day, yellow bilious fluid. This unfortunate patient has a history of recurrent glioblastoma, post surgery not quite two years ago, and has had a recent decline over the last month. Palliative consulted to assist with establishing goals of care. I met with the patient's daughter/POA, Melissa Lopes, who states that over and , the patient was doing fairly well and was receiving chemotherapy for the glioblastoma as they had recently found out it was "active again." At the beginning of June however, the patient began to have a rapid decline, is now nonverbal and unable to get out of bed or eat. She had a PEG tube and actually pulled it out herself. A NG tube was placed on 07/01 for temporary feeding. The daughter is unsure at this point if the patient's decline and major change is due to progression of her disease or as a result of her chemo. Either way, Melissa states that her mother would never want to live in a vegetative state. She doesn't want the patient to go through with another PEG tube just to prolong life in the patient's current condition. However, she is not quite ready to stop the tube feedings via NG tube. If by chance the patient's condition would improve, then she'd discuss options at that time; and if the patient does not improve or declines she would want to discontinue tube feedings/NG tube and make the patient comfortable to allow natural . We discussed other goals of care and completed a POLST form. We also discussed hospice and their role. Melissa would be interested in having hospice come and see the patient at the [facility]. I met with the patient who is nonverbal, did not answer any questions or follow commands. She does open eyes and track. Unable to obtain any ROS and patient could not communicate if she had pain or discomfort but she appeared to be in no distress. Of note, Melissa stated that she has full medical power of corporate attorney as decided by the patient. The patient's /Melissa's father, has been from the patient for many years and is not a decision maker. Past Medical/Surgical History Medical History: Glioblastoma Convulsive disorder Major depressive disorder Hyperlipidemia Diabetes mellitus type 2 Hypothyroidism Dementia Recurrent diarrhea Protein malnutrition Surgical History: Permanent pacemaker Craniotomy, resection of intracranial mass Social History Smoking Status: Never Smoker History of Alcohol Use: No Drug Use: none Marital Status: ( for many years) Occupation Status: retired Review of Systems unable to obtain Allergies Coded Allergies: No Known Allergies (Unverified , 07/07/16) Medications Current Inpatient Medications Medications (Trade) Dose Ordered Sig/Martin Route Start Time Stop Time Status Last Admin Dose Admin Enoxaparin Sodium (Lovenox Inj) 30 mg Q12 SQ 07/25/16 21:00 08/24/16 20:59 07/27/16 10:26 30 MG Acetaminophen (Tylenol Supp) 650 mg Q6 VA 07/25/16 18:00 08/24/16 17:59 07/27/16 12:29 650 MG Dexamethasone (Decadron Tab) 4 mg BID PO 07/25/16 21:00 08/24/16 20:59 07/27/16 10:26 4 MG Levothyroxine Sodium (Synthroid Tab) 25 mcg DAILYBB NG 07/26/16 06:00 08/25/16 06:59 07/27/16 05:49 25 MCG Multivitamins Therapeutic (Cerovite Liquid) 15 ml DAILY NG 07/26/16 09:00 08/25/16 08:59 07/27/16 10:25 15 ML Simvastatin (Zocor Tab) 20 mg DAILY NG 07/26/16 09:00 08/25/16 08:59 07/27/16 10:26 20 MG Venlafaxine HCl (effeXOR TAB) 37.5 mg BID NG 07/25/16 21:00 08/24/16 20:59 07/27/16 10:26 37.5 MG Levetiracetam (Keppra Soln) 1,500 mg Q12 PO 07/25/16 21:00 08/24/16 20:59 07/27/16 10:26 1,500 MG Gabapentin (Neurontin) 800 mg TID NG 07/25/16 21:00 08/24/16 20:59 07/27/16 10:25 800 MG Glucose (Glucose 40% Gel) 15-30 GRAMS 15 GRAMS... UD PRN PO 07/25/16 14:45 08/24/16 14:44 Glucose (Glucose Chew Tab) 4-8 Tablets 4 Tabl... UD PRN PO 07/25/16 14:45 08/24/16 14:44 Dextrose (Dextrose 50% 50ML Syringe) 25-50ML OF 50% DW IV FOR... UD PRN IV 07/25/16 14:45 08/24/16 14:44 Glucagon (Glucagon Inj) 1 mg UD PRN SQ 07/25/16 14:45 08/24/16 14:44 Ondansetron HCl 4 mg 4 mg Q4H PRN IV 07/25/16 14:45 08/24/16 14:44 Sodium Chloride (Nss 1000ml) 1,000 ml @ 100 mls/hr Q10H IV 07/25/16 14:32 08/24/16 14:31 07/27/16 05:48 100 MLS/HR Cholecalciferol (Vitamin D Tab) 1,000 inter.unit DAILY NG 07/26/16 09:00 08/25/16 08:59 07/27/16 10:26 1,000 INTER.UNIT Insulin Aspart (novoLOG ASPART) SLIDING SCALE If C... Q6 SC 07/26/16 00:00 08/25/16 00:00 Multi-Ingredient Ointment (Eucerin Unscented Cr) 1 appln BID PRN EXT 07/26/16 13:15 08/25/16 13:14 Enteral Nutritional Formula (Fibersource HN) 1,000 ml DAILY GT 07/26/16 14:30 08/25/16 14:29 07/27/16 10:25 1,000 ML Sterile Water (Tube Feeding Water Flush) 1 ea Q6 GT 07/26/16 18:00 08/25/16 17:59 07/27/16 12:13 1 EA Physical Exam Date Time Temp Pulse Resp B/P Pulse Ox O2 Delivery O2 Flow Rate FiO2 07/27/16 08:28 Room Air 07/27/16 08:03 36.7 84 16 145/80 97 Room Air 07/27/16 00:14 Room Air 07/26/16 23:06 36.3 89 14 138/81 97 Room Air 07/26/16 16:00 96 Room Air 07/26/16 15:31 36.4 87 18 121/84 96 Room Air General Appearance: no apparent distress, + pertinent finding (chronically ill appearing) Neck: no JVD Respiratory: no respiratory distress, no accessory muscle use, + decreased breath sounds Cardiovascular: regular rate, rhythm, + pertinent finding (generalized edema) Abdomen: normal bowel sounds, soft Neurologic/Psychiatric: alert, + pertinent finding (nonverbal) Skin: normal color Laboratory Results Last 24 Hours Test 07/26/16 18:19 07/26/16 20:48 07/26/16 23:55 07/27/16 05:47 Bedside Glucose 124 mg/dl 123 mg/dl 132 mg/dl 133 mg/dl Test 07/27/16 07:31 07/27/16 07:59 07/27/16 12:28 White Blood Count 1.79 K/uL Red Blood Count 3.41 M/uL Hemoglobin 11.1 g/dL Hematocrit 32.8 % Mean Corpuscular Volume 96.2 fL Mean Corpuscular Hemoglobin 32.6 pg Mean Corpuscular Hemoglobin Concent 33.8 g/dl Platelet Count 147 K/uL Mean Platelet Volume 9.8 fL Neutrophils (%) (Auto) 65.8 % Lymphocytes (%) (Auto) 29.1 % Monocytes (%) (Auto) 3.9 % Eosinophils (%) (Auto) 0.6 % Basophils (%) (Auto) 0.0 % Neutrophils # (Auto) 1.18 K/uL Lymphocytes # (Auto) 0.52 K/uL Monocytes # (Auto) 0.07 K/uL Eosinophils # (Auto) 0.01 K/uL Basophils # (Auto) 0.00 K/uL RDW Standard Deviation 56.5 fL RDW Coefficient of Variation 16.5 % Immature Granulocyte % (Auto) 0.6 % Immature Granulocyte # (Auto) 0.01 K/uL Nucleated RBC Absolute Count (auto) 0.02 K/uL Nucleated Red Blood Cells % 1.1 % Sodium Level 142 mmol/L Potassium Level 4.0 mmol/L Chloride Level 108 mmol/L Carbon Dioxide Level 25 mmol/L Anion Gap 9.0 mmol/L Blood Urea Nitrogen 12 mg/dl Creatinine 0.55 mg/dl Est Creatinine Clear Calc Drug Dose 86.9 ml/min Estimated GFR () 110.9 Estimated GFR (Non- 95.7 BUN/Creatinine Ratio 21.8 Random Glucose 140 mg/dl Calcium Level 8.8 mg/dl Bedside Glucose 124 mg/dl Assessment & Plan Palliative Performance Scale: 30 % (total care, bed bound, altered mental status/nonverbal, decreased intake via NG tube) Problem list: Weakness AMS/nonverbal Glioblastoma Vomiting- ?Gastroenteritis NPO/protein malnutrition Pancytopenia Hypoalbuminemia Goals of care (Z51.5) Palliative care plan: Discussed with daughter/POA Melissa Lopes and Dr. Mccormick. -Patient is now DNR/DNI. -Goal is for comfort. -Continue tube feedings via NG tube for now, no plan for PEG tube. -Return to the [facility] on comfort measures with or without hospice agency- case reviewer updated and following up -POLST form completed as follows: DNR/DNI, comfort measures only, limited use of antibiotics with comfort as the goal, and trial period of artificial hydration/nutrition with the addition order "Continue tube feedings for now. If no improvement or patient declines, discontinue feedings and make patient comfortable." -Would continue any medication related to comfort including Keppra to prevent seizures. -The patient has no signs of pain and is not currently on any pain medication, but if she does, could order Roxanol 5mg PO Q3h PRN Thank you kindly for this consult. Please feel free to contact me with any further palliative care needs.
[2016-07-27 14:54] VITALS: BP 117/58; PULSE 83; TEMP 36.9; O2SAT 94
[2016-07-27 16:30] VITALS: O2SAT 94
[2016-07-27 23:41] VITALS: BP 147/73; PULSE 83; TEMP 36; O2SAT 98
[2016-07-28] MEDS: ACETAMINOPHEN 650 MG SUPP PR SCH ×3 (00:35→11:36)
[2016-07-28] MEDS: SODIUM CHLORIDE 0.9% 1000ML 1,000 ML IV SCH ×2 (01:05→10:45)
[2016-07-28 01:10] VITALS: BP 128/76; PULSE 68
[2016-07-28] MEDS: LEVOTHYROXINE 25 MCG TAB NG SCH (05:38)
[2016-07-28] MEDS: TUBE FEEDING WATER FLUSH GT SCH ×3 (05:38→11:37)
[2016-07-28] MEDS: INSULIN ASPART 100 UNITS/ML 3 ML PEN SC SCH ×3 (05:42→12:00)
[2016-07-28 07:24] VITALS: BP 139/69; PULSE 80; TEMP 36.9; O2SAT 96
[2016-07-28 07:31] LABS: BUN/CREATININE RATIO 27.6 (10-20); CALCIUM 8.4 mg/dl (8.5-10.1); CREATININE 0.42 mg/dl (0.60-1.20); MAGNESIUM 1.8 mg/dl (1.8-2.4); POTASSIUM 3.8 mmol/L (3.5-5.1)
[2016-07-28] MEDS: FIBERSOURCE HN 1000ML BAG GT SCH ×2 (07:54)
[2016-07-28 08:05] LABS: HEMATOCRIT 32.4 % (37-47); MEAN CORPUSCULAR HEMOGLOBIN 33.1 pg (25-34); MEAN CORPUSCULAR HGB CONC 34.9 g/dl (32-36); MEAN PLATELET VOLUME 9.9 fL (7.4-10.4); PLATELET COUNT 157 K/uL (130-400); RED BLOOD COUNT 3.41 M/uL (4.2-5.4); WHITE BLOOD COUNT 1.69 K/uL (4.8-10.8)
[2016-07-28] MEDS: CHOLECALCIFEROL 1000 INTER.UNIT TAB NG SCH (08:05)
[2016-07-28] MEDS: VENLAFAXINE HCL 37.5 MG TAB NG SCH (08:05)
[2016-07-28] MEDS: DEXAMETHASONE 4 MG TAB PO SCH (08:05)
[2016-07-28] MEDS: LEVETIRACETAM ORAL SOLN 100MG/ML PO SCH (08:05)
[2016-07-28] MEDS: ENOXAPARIN 30 MG/0.3 ML SYR SQ SCH (08:05)
[2016-07-28] MEDS: SIMVASTATIN 20 MG TAB NG SCH (08:05)
[2016-07-28] MEDS: MULTIVITAMINS W/MINERALS 15ML UDP NG SCH (08:06)
[2016-07-28 08:07] LABS: BASO % 0.6 %; BASO ABS # 0.01 K/uL (0-0.2); COMPLETE YES; IG% 1.2 %; LYMPH % 39.6 %; LYMPH ABS # 0.67 K/uL (1.2-3.4); MONO % 7.7 %; NEUT % 50.9 %
[2016-07-28] MEDS: GABAPENTIN 250 MG/5 ML 470 ML BTL NG SCH (08:08)
[2016-07-28] MEDS ORDERED: KPPS PO (10:01)
[2016-07-28] MEDS ORDERED: LORA-741 PO (10:01)
[2016-07-28] MEDS ORDERED: Tube Feeding Water Flush GT (10:01)
[2016-07-28] MEDS ORDERED: RXNS20 PO (10:01)
--- NOTE | 2016-07-28 10:01 | Discharge Instructions ---
Discharge Instructions Admission Reason for Admission: Abdominal Pain With Vomiting Discharge Discharge Diagnosis / Problem: glioblastoma Discharge Goals Goal(s): Decrease discomfort Activity Recommendations Activity Level: Bedrest Shower/Bathe: no limitations . Additional Information Patient informed of condition: Yes Advance Directives: Yes DNR: Yes Level of Care: Skilled Communicable Disease: No Prognosis: Deteriorating (comfort methods) Oxygen at (LPM): 1-2 LMP to keep comfortable Peña Catheter: Yes Instructions / Follow-Up Instructions / Follow-Up you have glioblastoma to goat of care is DNR/DNI and comfort. ok to Continue tube feedings via NG tube for now, no plan for PEG tube. continue [facility] on comfort measures, consult hospice agency-after arriving ECF -POLST form completed as follows: DNR/DNI, comfort measures only, limited use of antibiotics with comfort as the goal, and trial period of artificial hydration/nutrition with the addition order "Continue tube feedings for now. If no improvement or patient declines, discontinue feedings and make patient comfortable." - continue any medication related to comfort including Keppra to prevent seizures. no more any blood tests, no more send back to hospital unless comfort level not able to be achieved Current Hospital Diet Patient's current hospital diet: Discharge Diet Recommended Diet: N/A (NG tube feeding) Pending Studies Studies pending at discharge: no Physician Orders On Transfer POLST Discussion: with POLST completion Laboratory Results Meds Administered (Past 24Hrs) Medications (Trade) Dose Ordered Sig/Martin Route Start Time Stop Time Status Last Admin Dose Admin Enteral Nutritional Formula (Fibersource HN) 1,000 ml DAILY GT 07/26/16 14:30 08/25/16 14:29 07/28/16 07:54 1,000 ML Sterile Water (Tube Feeding Water Flush) 1 ea Q6 GT 07/26/16 18:00 08/25/16 17:59 07/28/16 05:38 1 EA Medical Emergencies . Who to Call and When: Medical Emergencies: If at any time you feel your situation is an emergency, please call 911 immediately. . Non-Emergent Contact Non-Emergency issues call your: Primary Care Provider . . "Provider Documentation" section prepared by Lambert Mccormick. Core Measure Problem Core Measures: None
[2016-07-28 11:25] VITALS: BP 139/69; PULSE 80; TEMP 36.9; O2SAT 96
--- NOTE | 2016-07-28 13:53 | Discharge Summary ---
Discharge Summary Admission Date: Jul 25, 2016 at 14:32 Discharge Date: Jul 28, 2016 Principal Diagnosis: glioblastoma Problems/Secondary Diagnoses: Left side paralyzed Nonverbal Feeding dysfunction DNR/DNI and comfort. ok to Continue tube feedings via NG tube for now, no plan for PEG tube. Immunizations: Have You Had Influenza Vaccine: Yes History of Tetanus Vaccine?: UTD History of Pneumococcal: Yes History of Hepatitis B Vaccine: No Procedures: No Consultations: Palliative care Medication Reconciliation New Medications: Lorazepam (Ativan) 0.5 Mg Tab 0.5 MG PO Q6H for 15 Days, #60 TAB Morphine Sulfate (Morphine Sulfate) 20 Mg/1 Ml Soln 4 MG PO Q4 for 15 Days Levetiractam (Levetiracetam) 100 Mg/1 Ml Soln 1500 MG PO Q12 for 30 Days [Tube Feeding Water Flush] () 1 EA PEPE 1 EA GT Q6 for 30 Days Continued Medications: Acetaminophen (Tylenol) 650 Mg Supp 650 MG Q6 Bisacodyl (Dulcolax) 10 Mg Sup 1 SUPP HI, SUP Dexamethasone (Decadron) 4 Mg Tab 1 TAB NG BID for 2 Days, #4 TAB Docusate Sodium (Docusate Sodium) 100 Mg Cap 10 ML NG BID for 30 Days, CAP Insulin Lispro (Human) (Humalog) 100 Unit/Ml Inj SQ ACHS for diabetes mellitus inject as per sliding scale Magnesium Hydroxide (Milk Of Magnesia) 30 Ml Susp 30 ML PO, ML Nystatin/Triamcinolone (Mycogen ||) Oint Omeprazole (Prilosec) 20 Mg Capcr 20 MG PO DAILY, CAP Sennosides (Senna) 8.8 Mg/5 Ml Syp 10 ML NG BID Sodium Phosphates (Fleet Enema Six Pack) 1 Eun Eun Venlafaxine Hcl (Effexor) 37.5 Mg Tab 37.5 MG PO BID, TAB give 1 tab via NG-TUBE BID [gabapentin solution] () 16 ML NG TID Discontinued Medications: Cholecalciferol (Vitamin D3) 1,000 Unit Tab 1 TAB NG DAILY for 90 Days, #90 TAB 3 Refills Enoxaparin Sodium (Lovenox) 30 Mg/0.3 Ml Inj 30 MG SQ Q12, SYR Levetiracetam (Keppra) 750 Mg Tab 15 ML NG Q12, TAB Levothyroxine Sodium (Levothyroxine Sodium) 25 Mcg Tab 1 TAB PO DAILY for 30 Days, #30 TAB 5 Refills Multivitamins/Minerals (Mvi With Minerals) Tab 5 ML NG DAILY, TAB Simvastatin (Zocor) 20 Mg Tab 1 TAB PO DAILY for 90 Days, #90 TAB 1 Refill 1 TAB VIA NG-TUBE HS Discharge Exam Doing the same, nonverbal, open eyes, feeding to the goal by NG tube feeding, no emesis Review of Systems: Constitutional: + problem reported (not able to obtain because of patient is nonverbal) Physical Exam: General Appearance: no apparent distress, + pertinent finding (nonverbal, open eyes, no obvious signs of uncomfortable or pain) Respiratory/Chest: + decreased breath sounds Cardiovascular: regular rate, rhythm, no edema, no gallop Abdomen / GI: non tender, soft Extremities: + pertinent finding (left side paralyzed and possible contracture) Neurologic/Psychiatric: + pertinent finding (nonverbal, left side paralyzed, ) Skin: normal color, warm/dry Hospital Course 71 yo F with PMHx of Glioblastoma, Hyperlipidemia, DM II, hypothyroidism, unspecified convulsions, major depressive disorder and recurrent diarrhea who presents with multiple episodes of vomiting Was admitted on 07/25/2016 Pt is from [facility] and is essentially nonverbal at bedside. Vomiting, loose stools prior to admission, likely from gastroenteritis with underlying severe protein malnutrition, or NG tube feeding dysfunction Possible from the multiple factors, such as reaction to recent to chemotherapy therapy, from the brain edema was per has CT studies, or from gastro-enteritis Resolved NGT in place, continue feeding, tolerated okay Was given 1 L NSS given in the ED, Patient was having PEG tube feeding when she was in [facility], seem removed PEG by herself in early Jun 2016 Was Planning continue temporary NG tube feeding and at least 6 week and then reevaluation for their PEG tube placement in early August 2016 However this will not be in the plan anymore because of patient is comfort methods. Pancytopenia which is persistent possible from side effect of recent or chemotherapy treatment in [facility], because bone marrow suppression Hx Glioblastoma, unspecific convulsive disorder - Continue decadron 16 mg daily - Cont keppra 1500 mL q12H, gabapentin 800 mL TID through NGT Patient was having follow-up with his [facility] Hyperlipidemia - Cont statin Hypothyroidism DM Major Depressive disorder, recurrent On 07/27/2016 I called to daughter, who is power of erisa attorney as well, discussed with care plan, discussed with prognosis, I believe glioblastoma is very malignant , the life expectancy is very limited Patient become comfort measures only after talk to palliative care, POLST form signed, and I called to the daughter today confirmed the care plan Goal of care: DNR/DNI, comfort measures only, limited use of antibiotics with comfort as the goal, and trial period of artificial hydration/nutrition with the addition order "Continue tube feedings for now. If no improvement or patient declines, discontinue feedings and make patient comfortable." Instructions / Follow-Up Instructions / Follow-Up you have glioblastoma to goat of care is DNR/DNI and comfort. ok to Continue tube feedings via NG tube for now, no plan for PEG tube. continue [facility] on comfort measures, consult hospice agency-after arriving ECF -POLST form completed as follows: DNR/DNI, comfort measures only, limited use of antibiotics with comfort as the goal, and trial period of artificial hydration/nutrition with the addition order "Continue tube feedings for now. If no improvement or patient declines, discontinue feedings and make patient comfortable." - continue any medication related to comfort including Keppra to prevent seizures. no more any blood tests, no more send back to hospital unless comfort level not able to be achieved Total Time Spent: Greater than 30 minutes This includes examination of the patient, discharge planning, medication reconciliation, and communication with other providers. Discharge Instructions Please refer to the electronic Patient Visit Report (Discharge Instructions) for additional information. Additional Copies To [facility]
[2016-07-28 21:35] LABS: O&P GIARDIA AG NOT DETECTED (NOT DETECTED)
== END 2016-07-28 12:52 | disposition hospice, inpatient (51) | DRG 391 ==
LOC: ENRESERVTM → ENRESERVDT → EDBD 10:45 → C.EDC 10:47 → C.MSN 14:32
PROVIDERS: ADMIT Hospitalist; ATTEND Hospitalist
DX: K52.9 Noninfective gastroenteritis and colitis, unspecified (principal); E43 Unspecified severe protein-calorie malnutrition; G93.6 Cerebral edema; D61.810 Antineoplastic chemotherapy induced pancytopenia; F33.9 Major depressive disorder, recurrent, unspecified; G81.94 Hemiplegia, unspecified affecting left nondominant side; C71.9 Malignant neoplasm of brain, unspecified; R47.01 Aphasia; R11.14 Bilious vomiting; E03.9 Hypothyroidism, unspecified; D69.6 Thrombocytopenia, unspecified; E78.00 Pure hypercholesterolemia, unspecified; D70.9 Neutropenia, unspecified; E86.0 Dehydration; E11.9 Type 2 diabetes mellitus without complications; G40.909 Epilepsy, unspecified, not intractable, without status epilepticus; I10 Essential (primary) hypertension; R63.3 Feeding difficulties; T88.7XXA Unspecified adverse effect of drug or medicament, initial encounter; F03.90 Unspecified dementia, unspecified severity, without behavioral disturbance, psychotic disturbance, mood disturbance, and anxiety; Z95.0 Presence of cardiac pacemaker; Z79.52 Long term (current) use of systemic steroids; Z66 Do not resuscitate; Z93.1 Gastrostomy status; Z79.01 Long term (current) use of anticoagulants; Z51.5 Encounter for palliative care; Z79.899 Other long term (current) drug therapy